=== PATIENT | male | born 1935 | race Caucasian/White ===

== ENCOUNTER → 2017-07-27 | Outpatient (CLI) | payer MEDICARE ==
[2015-08-11 10:16] VITALS: BMI 26.9
[~2017-07-27] MED LIST: AMLO-96 PO; AMLO-99 PO; AZIT-17 PO; BUS5 PO; CITA-141 PO; CITA-156 PO; CYCL-277 PO; DULO30CA35 PO; DULO30CA6 PO; DULO60CA56 PO; DULO60CA7 PO; FENT-21 TD; FENT-60 TD; FLU IM; FLU180SY9 IM; FLU45SYR17 IM; HYDR-385 PO; HYDR12.558 PO; LIS20 PO; LISI-353 PO; LISI20TA29 PO; LOR5/325 PO; MELO7.5O4 PO; METO-253 PO; METO100T20 PO; METO50TA19 PO; MIRT-22 PO; MIRT7.5T2 PO; PNEU0.5D3 IM; POLY17PO25 PO; POTA-23 PO; QUET25TA PO; SPIR25TA78 PO; VAR05PT PO; VARE1TAB3 PO; ZOL5 PO
[2017-07-27 11:46] LABS: PLATELET COUNT, AUTOMATED 224 K/uL (150-450)
== END ==
LOC: LAB 11:14
PROVIDERS: ATTEND Internal Medicine
DX: I10 Essential (primary) hypertension (principal); E87.1 Hypo-osmolality and hyponatremia
CPT/HCPCS: 36415; 82040; 82247; 82310; 82374; 82435; 82565; 82947; 84075; 84132; 84155; 84295; 84443; 84450; 84460; 84520; 85025

== ENCOUNTER 2017-08-05 13:00 | Outpatient (RCR) | payer MEDICARE ==
[2015-08-11 10:16] VITALS: BMI 26.9
--- NOTE | 2017-08-04 13:23 | PT INITIAL EVALUATION ---
MEDICAL DIAGNOSIS: low back pain TREATMENT DIAGNOSIS: same DATE OF ONSET: 06/20/07 SUBJECTIVE: Josesito Beltran presents to physical therapy with complaints of low back pain associated with radiating pain around his umbilical and down his L LE on the anterior and posterior side of his L LE to his knee and occasionally into L foot. He reports that he has had this pain for over 10 years. He reports that he had a clean up surgical intervention around L2-3 approximately 10 years ago, however, he reports that it did not change his symptoms. He reports increased pain with standing, bending, laying (on his back and R side) , and lifting. He reports symptoms better with sitting, walking, and lying (as long as he is on his L side. Furthermore, he reports that he had an aneurism approximately 2 years ago along with the removal of some veins in his L LE along with increased falls around this same time. Due to this, he reports that he has decreased strength in his UE's and in his LE's. He denies any of the following symptoms: abnormal gait and bladder control, imaging, recent accidents, night pain, unexplained weight loss, or recent surgical interventions. He reports that the pain does not change with improved posture. Pain location is L1-L5 and described as . Pain scale is 2 on a ten point pain scale. REHAB PROBLEM LIST: Increased Pain Decreased ROM Decreased Strength Decreased Endurance Decreased Balance Decreased Function Decreased ADL's Decreased Mobility Decreased Gait PREVIOUS MEDICAL HISTORY: See EMR OCCUPATION: Retired OBJECTIVE: Posture: He demonstrated increased forward head, thoracic kyphosis, and decreased lumbar lordosis. ROM: Trunk AROM: flexion: moderate restriction with painful end feel. extension : moderate restriction with painful end feel. Sidegliding R: minimal restriction with muscular end feel. Sidegliding L: minimal restriction with muscular end feel. Strength: Core, B LE's: 4-/5, which includes: B hip flexion, extension, abduction, adduction, B knee flexion and extension, and B ankle PF and DF. B UE 's: 4/5, which includes: B shoulder flexion, scaption, abduction, IR/ER, B elbow flexion and extension, and B wrist extension and flexion. Palpation: TTP: L1-5 spinous processes. He was not tender to palpation anywhere else. Sensation: Intact Special Tests: Oswestry: 38% impairment. prone in lying/prone on elbows/standing extension: pain felt during the test and better following the test with increased trunk AROM in all directions with decreased pain at end ranges. Mobility: Modified Independent Gait: He demonstrated the following gait mechanics with cane: decreased B step length, decreased B step clearance, decreased velocity, decreased B pelvic rotation, no LOB, increased stance time during the gait cycles, and decreased swing time during the gait cycles. Balance: Will test in the future: appears to be a major deficit. ASSESSMENT: Jamey will benefit from skilled physical therapy addressing the listed impairments to improve function and QOL. Based on today's examination, it appears that his provisional classification is a posterior derangement that responded well to extension based principles. Short Term Goals 3 weeks: Pt will demonstrate centralized low back pain to improve function and QOL. 6 weeks: Pt will demonstrate abolished low back pain to improve function and QOL. 8 weeks: Pt will demonstrate improvements in core and B LE's from baseline to 4 +/5 or greater to improve function and QOL. Patient's Goals reduce low back pain and improve strength in UE's, LE's, and core PLAN: Patient to be seen for Manual Therapy/STM/MET Strengthening/condition Range of Motion Spinal Stabilization Work Hardening/Cond Stretching Neuromuscular Re-ed Closed Chain Program Posture/Body mechanics Gait Trg/Balance Trg Home Exercise Program Therapeutic Activities 2x/Week for 2 Months If you have any questions, comments, or concerns about this report or plan, please contact me at . Thank you, Richard Sullivan, PT, DPT MTDD
[2017-08-24] MEDS ORDERED: SPIR50TA31 PO ×2 (11:31→11:34)
[2017-08-24] MEDS ORDERED: LISI20TA29 PO (11:34)
[2017-08-24] MEDS ORDERED: METO100T20 PO (11:34)
[2017-08-24] MEDS ORDERED: AMLO-99 PO (11:34)
[2017-08-24] MEDS ORDERED: BUS5 PO (11:34)
[2017-08-24] MEDS ORDERED: DULO60CA56 PO (11:34)
== END 2017-08-05 18:00 | disposition home or self-care (01) ==
LOC: PT 13:00
PROVIDERS: ATTEND Internal Medicine
DX: M54.16 Radiculopathy, lumbar region (principal)
CPT/HCPCS: 97162

== ENCOUNTER → 2017-09-09 | Outpatient (CLI) | payer MEDICARE ==
[2015-08-11 10:16] VITALS: BMI 26.9
[~2017-09-09] MED LIST changes: +SPIR50TA31 PO
--- NOTE | 2017-09-09 19:02 | RADIOLOGY IMAGING REPORT ---
FACILITY: [facility] [place] PATIENT NAME: Josesito Beltran : 1935 MR: [id number] V: [id number] EXAM DATE: ORDERING PHYSICIAN: DENISSE OLSEN TECHNOLOGIST: Location: [facility] [place] Patient: Josesito Beltran : 1935 Visit/Account:[id number] Date of Sevice: 09/09/2017 Examination: WRIST LEFT MIN 3 VIEW Comparison: None. History: Left wrist pain. Findings: No acute fracture. Widened scapholunate interval with mild proximal migration of the capita te. Additionally, there is increased dorsal tilt of the lunate. Moderately advanced iterative change along the radioscaphoid joint. No soft tissue abnormality. IMPRESSION: 1. No left wrist acute fracture or malalignment. 2. 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 Report Dictated By: Keon De Santiago MD at 09/09/2017 6:52 PM Report E-Signed By: Keon De Santiago MD at 09/09/2017 6:57 PM WSN:[id number]
== END ==
LOC: RAD 14:46
PROVIDERS: ATTEND Internal Medicine
DX: R93.7 Abnormal findings on diagnostic imaging of other parts of musculoskeletal system (principal)

== ENCOUNTER → 2018-01-20 | Outpatient (CLI) | payer MEDICARE ==
[2015-08-11 10:16] VITALS: BMI 26.9
[~2018-01-20] MED LIST changes: +BUSP7.5T7 PO; +LUTE1CAP4 PO; -SPIR25TA78 PO; +SPIR25TA80 PO; -SPIR50TA31 PO; +SPIR50TA33 PO
[2018-01-20 11:55] LABS: PLATELET COUNT, AUTOMATED 196 K/uL (150-450)
[2018-01-20 12:08] LABS: LDL CHOLESTEROL 61 mg/dl
--- NOTE | 2018-01-20 12:30 | RADIOLOGY IMAGING REPORT ---
FAC[place]: [facility] [place] PATIENT NAME: Josesito Beltran : 1935 MR: [id number] V: [id number] EXAM DATE: ORDERING PHYSICIAN: DENISSE OLSEN TECHNOLOGIST: Location: [facility] [place] Patient: Josesito Beltran : 1935 Visit/Account:[id number] Date of Sevice: 01/20/2018 Technique: CHEST PA AND LAT HISTORY: smoking and weight loss Comparison studies: Chest radiographs June 04, 2016 FINDINGS: No acute airspace consolidation. There is pulmonary hyperexpansion in the background setti ng of scattered interstitial lung markings. The cardiomediastinal silhouette is unchanged. IMPRESSION: 1. No acute cardiopulmonary process. 2. Chronic lung findings. Report Dictated By: Carlos Lawson DO at 01/20/2018 12:24 PM Report E-Signed By: Carlos Lawson DO at 01/20/2018 12:26 PM WSN:[email or web address]
== END ==
LOC: LAB 11:21 → RAD 11:23
PROVIDERS: ATTEND Internal Medicine
DX: R91.8 Other nonspecific abnormal finding of lung field (principal); M54.5 Low back pain; G89.4 Chronic pain syndrome; E87.1 Hypo-osmolality and hyponatremia; I10 Essential (primary) hypertension; I71.4 Abdominal aortic aneurysm, without rupture; F33.2 Major depressive disorder, recurrent severe without psychotic features; R63.4 Abnormal weight loss; Z87.891 Personal history of nicotine dependence
CPT/HCPCS: 36415; 71046; 81001; 84443; 85025; G0103; 82040; 82247; 82310; 82374; 82435; 82465; 82565; 82947; 83718; 84075; 84132; 84153; 84155; 84295; 84450; 84460; 84478; 84520

== ENCOUNTER → 2018-07-17 | Outpatient (CLI) | payer MEDICARE ==
[2015-08-11 10:16] VITALS: BMI 26.9
[~2018-07-17] MED LIST changes: +AMLO-125 PO; +AMLO-127 PO; -AMLO-96 PO; -AMLO-99 PO; +GABA-547 PO
[2018-07-17 13:28] LABS: PLATELET COUNT, AUTOMATED 211 K/uL (150-450)
== END ==
LOC: LAB 13:09
PROVIDERS: ATTEND Internal Medicine
DX: I71.4 Abdominal aortic aneurysm, without rupture (principal); I10 Essential (primary) hypertension; R63.4 Abnormal weight loss
CPT/HCPCS: 36415; 81001; 82040; 82247; 82310; 82374; 82435; 82565; 82947; 84075; 84132; 84155; 84295; 84443; 84450; 84460; 84520; 85025

== ENCOUNTER → 2018-08-03 | Outpatient (CLI) | payer MEDICARE ==
[2015-08-11 10:16] VITALS: BMI 26.9
--- NOTE | 2018-08-03 14:06 | RADIOLOGY IMAGING REPORT ---
FACILITY: [facility] PATIENT NAME: Josesito Beltran : 1935 MR: [id number] V: [id number] EXAM DATE: ORDERING PHYSICIAN: DENISSE OLSEN TECHNOLOGIST: Location: [facility] [place] Patient: Josesito Beltran : 1935 Visit/Account:[id number] Date of Sevice: 08/03/2018 Examination: Computed tomography chest abdomen and pelvis without contrast HISTORY: Abdominal aortic aneurysm. Weight loss. COMPARISON: None available. TECHNIQUE: Transaxial computed tomography images are obtained of the chest abdomen and pelvis without contrast. Multiplanar reformatted images were created in the coronal and sagittal planes. One of the following dose optimization techniques was utilized in the performance of this exam: Autom ated exposure control; adjustment of the mA and/or kV according to the patient's size; or use of an i terative reconstruction technique. Specific details can be referenced in the facility's radiology C T exam operational policy. FINDINGS: Computed tomography thorax findings: There is no axillary adenopathy. No enlarged hilar or mediastinal nodes are identified. The thoracic aorta is diffusely atherosclerotic. The descending thoracic aorta appears mildly ectati c and measures up to 3.5 cm in greatest transaxial dimension. Coronary artery atherosclerosis is als o seen most pronounced involving the left anterior descending coronary artery. No pericardial effusion. No pleural effusion. Examination of the lung windows demonstrates biapical pleural parenchymal scarring asymmetric groundg lass opacity is identified within the left upper lobe. This measures up to 3.2 x 3.5 cm in the trans axial plane and measures up to 3.5 cm craniocaudally. Given the asymmetry, concern is for the possib ility of a low-grade neoplasm. There may be a trace small round solid component which measures 6 mm in size. See recommendations below. There are background changes of centrilobular emphysema. Suspe cted area of scarring seen along the minor fissure on image 64. Computed tomography abdomen and pelvis findings: Liver: No acute abnormality. Scattered calcifications suggesting old granulomatous disease. Biliary: Gallbladder has been previously removed. No biliary dilatation. Spleen: Unremarkable. Adrenal glands: Nodular thickening of the adrenal glands bilaterally which maintain their adreniform shape. Suspected left adrenal gland adenoma within the medial limb measures 1.8 x 1.1 cm in size. Pancreas: Unremarkable. Kidneys: No hydronephrosis. There are calcifications seen centrally within the right renal hilum. S ome of these are likely vascular. There is felt to be at least one nonobstructing stone in the midpo le which measures 4 mm. On the left, a peripheral hyperdense lesion is present. This may represent a hemorrhagic cyst. This measures 3 mm in size. GI: No colonic wall thickening or pericolic inflammation. Small bowel loops are normal in caliber. No free fluid. Vascular: There has been prior endoluminal stent graft repair of an abdominal aortic aneurysm. The n ative aorta is densely calcified. Calcifications extend into the iliac and femoral vessels. Severe common femoral artery atherosclerotic calcifications are seen. There may be severe stenosis bilatera lly. This is incompletely assessed. No retroperitoneal hematoma. Lymph nodes: No enlarged inguinal or retroperitoneal nodes are seen on this noncontrast exam. MUSCULOSKELETAL: Multilevel degenerative disc disease involves the lumbar spine. This is most severe at L3-L4 with endplate changes. No compression deformity. IMPRESSION: 1. Abnormal groundglass opacity with a questionable small solid component within the left upper lung . This is asymmetric to the right side and is superimposed upon underlying centrilobular emphysema. While this could be inflammatory/infectious, concern is for the possibility of a low-grade carcinoma . Follow-up CT scan in 3 months. See recommendations below. 2. Centril bular emphysema. 3. Extensive atherosclerosis. There has been prior endoluminal stent graft repair of the abdominal aorta. Extensive atherosclerotic calcifications involve the common femoral vessels.4. Nonobstructin g right renal stone/stones. 5. Peripheral hyperdense lesion within the midpole of the left kidney. This measures 3 mm in size a nd is indeterminate. FLE[employer] FOLLOW-UP GUIDELINES FOR NEWLY DETECTED INCIDENTAL NODULES IN PERSONS 35 YEARS OF AGE OR OLDER. *These recommendations do NOT apply to lung cancer screening, patients with immunosuppression or ariana ents with a known primary malignancy. SOLITARY SUBSOLID NODULE GROUND GLASS: If nodule size is < 6 mm: * No routine follow-up. If nodule size is > or equal to 6 mm: * CT at 6-12 months to confirm persistence, then CT every 2 years until 5 years if unchanged. PART SOLID: If nodule size is < 6 mm: * No routine follow-up. If nodule size is > or equal to 6 mm with solid component < 6 mm: * CT at 3-6 months to confirm persistence. If unchanged and solid component remains < 6 mm, annual CT for 5 years. If nodule size is > or equal to 6 mm with solid component > or equal to 6 mm: * CT at 3-6 months to confirm persistence. If unchanged, should be considered highly suspicious. LOW RISK PATIENT: Minimal or absent history of tobacco use and of other known risk factors. HIGH RISK PATIENT: Tobacco use, family history of lung cancer, upper pulmonary lobe location of nodul e, presence of emphysema, pulmonary fibrosis, older age. Elizabethhogio H, Tristian DP, Davido JM, et al. Guidelines for Management of Incidental Pulmonary Nodules Dete cted on CT Images: From the Fleischner Society 2017. Radiology. [facility] Report Dictated By: Arnulfo Sykes at 08/03/2018 1:17 PM Report E-Signed By: Arnulfo Sykes at 08/03/2018 2:02 PM WSN:[email or web address]
== END ==
LOC: CT 00:47
PROVIDERS: ATTEND Internal Medicine
DX: J43.2 Centrilobular emphysema (principal); I25.10 Atherosclerotic heart disease of native coronary artery without angina pectoris; N20.0 Calculus of kidney; N28.9 Disorder of kidney and ureter, unspecified
CPT/HCPCS: 71250; 74176

== ENCOUNTER → 2018-10-02 | Outpatient (CLI) | payer MEDICARE ==
[2015-08-11 10:16] VITALS: BMI 26.9
[~2018-10-02] MED LIST changes: +IOPAMIDOL 76% 150 ML INFUS BTL 150 ML ONE
--- NOTE | 2018-10-02 10:43 | RADIOLOGY IMAGING REPORT ---
FACILITY: [facility] [place] PATIENT NAME: Josesito Beltran : 1935 MR: [id number] V: [id number] EXAM DATE: ORDERING PHYSICIAN: DENISSE OLSEN TECHNOLOGIST: Location: [facility] [place] Patient: Josesito Beltran : 1935 Visit/Account:[id number] Date of Sevice: 10/02/2018 EXAMINATION: CT chest without IV contrast CT chest with IV contrast HISTORY: Abnormal CT of the chest. Follow-up abnormal groundglass opacity. COMPARISON: Chest radiograph from 01/20/[address] chest from 08/03/2018. TECHNIQUE: Axial images were taken through the chest without and with nonionic iodinated intravenous contrast. Sagittal and coronal reformatted images are also submitted. CONTRAST: 75 mL of IV [id number]. One of the following dose optimization techniques was utilized in the performance of this exam: Autom ated exposure control; adjustment of the mA and/or kV according to the patient's size; or use of an i terative reconstruction technique. Specific details can be referenced in the facility's radiology C T exam operational policy. FINDINGS: Lungs/pleura: There is mild centrilobular emphysema, worst in the upper lungs. There is a groundgla ss opacity in the left upper lobe measuring up to 3.5 cm (image 16 series 3) with an eccentric 6 mm s olid nodule (image 19 series 3). This is similar to prior exam. Mediastinum/tramaine: Negative. Heart/pericardium: Negative. Vessels: Extensive atherosclerotic calcifications including of the coronary arteries. Endograft in the upper abdominal aorta partly visualized. Musculoskeletal/body wall: Mild degenerative changes of the thoracic spine. Lymph nodes: Negative. Lower neck: Negative. Upper abdomen: Previous cholecystectomy. IMPRESSION: 1. 3.5 cm groundglass opacity in the left upper lobe with a 6 mm eccentric solid nodule is unchanged since 07/2018. Repeat noncontrast chest CT is recommended in 3-6 months. 2. Centrilobular emphysema. 3. Extensive atherosclerosis. FLE[employer] FOLLOW-UP GUIDELINES FOR NEWLY DETECTED INCIDENTAL NODULES IN PERSONS 35 YEARS OF AGE OR OLDER. *These recommendations do NOT apply to lung cancer screening, patients with immunosuppression or ariana ents with a known primary malignancy. SOLITARY SUBSOLID NODULE PART SOLID: If nodule size is > or equal to 6 mm with solid component > or equal to 6 mm: * CT at 3-6 months to confirm persistence. If unchanged, should be considered highly suspicious. LOW RISK PATIENT: Minimal or absent history of tobacco use and of other known risk factors. HIGH RISK PATIENT: Tobacco use, family history of lung cancer, upper pulmonary lobe location of nodul e, presence of emphysema, pulmonary fibrosis, older age. Yumiko H, Tristian DP, Jorge SIMMONS, et al. Guidelines for Management of Incidental Pulmonary Nodules Dete cted on CT Images: From the Fleischner Society 2017. Radiology. [facility] Report Dictated By: Becca Chinchilla MD at 10/02/2018 9:54 AM Report E-Signed By: Becca Chinchilla MD at 10/02/2018 10:39 AM WSN:[email or web address]
== END ==
LOC: CT 00:52
PROVIDERS: ATTEND Internal Medicine
DX: R91.1 Solitary pulmonary nodule (principal); J43.2 Centrilobular emphysema; I25.10 Atherosclerotic heart disease of native coronary artery without angina pectoris
CPT/HCPCS: 36415; 71270; Q9967; 82040; 82247; 82310; 82374; 82435; 82565; 82947; 84075; 84132; 84155; 84295; 84450; 84460; 84520

== ENCOUNTER 2018-11-14 13:18 | Emergency (ER) | payer MEDICARE ==
[2015-08-11 10:16] VITALS: Wt 82.1 kg
--- NOTE | 2018-11-14 13:21 | ER Report ---
History and Physical Time Seen By MD: 13:21 (SARAH KUMAR MD) Time Seen By MD: 18:26 (KARI QUEZADA DO) HPI/ROS CHIEF COMPLAINT: fall, urinary retention, hip and back and lower abdomen pain, c ant pee. HISTORY OF PRESENT ILLNESS: This is an 83 year old male. He fell on Tuesday. Patient says it was Tuesday, but family with him says it was Tuesday. He lost balance and fell with his left side against the bedside table. Having back and bilateral hip pain since that time. Also with abdominal pain. Says he urinated yesterday, but not much and has not been able to urinate today. Has lower abdomi nal distension. Has been very constipated, last bowel movement was last night and was constipated. No fevers. No shortness of breath. No chest pain. Normal sensation in legs, just hurts in hips and pelvis are to walk and move. (SARAH KUMAR MD) HPI/ROS Please see Dr. Kumar note (KARI QUEZADA DO) Allergies: Coded Allergies: No Known Drug Allergies (Verified , 08/05/15) Home Meds Active Scripts Hydrocodone Bit/Acetaminophen (HYDROCODON-ACETAMINOPHEN 5-325) 1 Each Tablet, 1 EACH PO Q8H PRN for pain, #90 TAB Refill on or after 12/23/2018 Prov:DENISSE OLSEN MD 10/19/18 Fentanyl 75 Mcg Patch (FENTANYL 75 MCG PATCH) 1 Each Patch.td72, 1 PATCH TD Q72H, #10 PATCH.72H refill on or after 12/23/2018 Prov:DENISSE OLSEN MD 10/19/18 Gabapentin (GABAPENTIN) 300 Mg Capsule, 300 MG PO BID, #180 CAPSULE 1 Refill Prov:DENISSE OLSEN MD 10/19/18 Spironolactone (SPIRONOLACTONE) 50 Mg Tablet, 50 MG PO BID, #60 TAB 11 Refills Prov:DENISSE OLSEN MD 04/25/18 Buspirone Hcl (BUSPIRONE HCL) 7.5 Mg Tablet, 7.5 MG PO BID, #60 TAB 9 Refills Prov:DENISSE OLSEN MD 01/20/18 Amlodipine Besylate (AMLODIPINE BESYLATE) 10 Mg Tablet, 1 TAB PO QDAY, #30 TAB 11 Refills Prov:DENISSE OLSEN MD 08/24/17 Lisinopril (LISINOPRIL) 20 Mg Tablet, 20 MG PO BID, #60 TAB 11 Refills Prov:DENISSE OLSEN MD 08/24/17 Metoprolol Succinate (METOPROLOL SUCCINATE) 100 Mg Tab.er.24h, 1 TAB PO QDAY, #11 TAB 11 Refills Prov:DENISSE OLSEN MD 08/24/17 Duloxetine Hcl (CYMBALTA) 60 Mg Capsule.dr, 60 MG PO QDAY, #30 CAP 11 Refills Prov:DENISSE OLSEN MD 08/24/17 Reported Medications Lutein Extract/Zeaxanthin Ext (LUTEIN 15 MG SOFTGEL) 1 Each Capsule, 1 EACH PO DAILY, CAPSULE 01/20/18 Polyethylene Glycol 3350 (MIRALAX) 17 Gm Powd.pack, 17 GM PO QDAY PRN for CONSTIPATION 03/12/15 Past Medical/Surgical History Hypertension, aortic aneurysm, history of prostate problems, arthritis, macular degeneration, depression, skin cancer removed on face, other surgeries include cholecystectomy, hernia, prostate, various orthopedic surgeries including shoulder and back (SARAH KUMAR MD) Reviewed Nurses Notes: Yes (SARAH KUMAR MD) Hx Smoking: Yes Smoking Status: Current: Every Day Smoker Hx Substance Use Disorder: No Hx Alcohol Use: No (SARAH KUMAR MD) Constitutional Vital Sign - Last 24 Hours 11/14/18 13:25 Temp 97.9 Pulse 105 Resp 18 B/P (MAP) 106/95 Pulse Ox 91 O2 Delivery Room Air (KARI QUEZADA DO) Physical Exam General Appearance: The patient is alert. No acute distress. Eyes: Pupils are equal, round. No pallor, injection or icterus. ENT: Mucous membranes are moist. Normal oral mucosa. Neck: Supple and non tender. Respiratory: Lungs are clear to auscultation. Cardiovascular: Regular rate and rhythm. No murmurs, gallops or rubs. Normal capillary refill. Trace edema bilateral lower extremities. Gastrointestinal: Abdomen is soft, tender in lower abdomen, distended and tight. Normal active bowel sounds. No costovertebral angle tenderness with percussion. Neurological: Alert and oriented x3. No focal neurologic deficits Skin: Warm and dry. No rashes. Musculoskeletal: Extremities are nontender. No tenderness in palpation of the cervical, thoracic and lumbar spine. DIFFERENTIAL DIAGNOSIS: After history and physical exam, differential diagnosis was considered for fall a few days ago with hip and back pain, now with lower abdomen pain and what appears to be urinary retention. Also with constipation recently. (SARAH KUMAR MD) Physical Exam Please see Dr. Kumar note (KARI QUEZADA DO) Medical Decision Making Data Points Result Diagram: 11/14/18 1352 11/14/18 1352 Laboratory Hematology Test 11/14/18 13:52 Red Blood Count 5.38 M/uL (4.00-5.60) Mean Corpuscular Volume 91.7 fL (80.0-96.0) Mean Corpuscular Hemoglobin 30.8 pg (26.0-33.0) Mean Corpuscular Hemoglobin Concent 33.6 g/dL (32.0-36.0) Red Cell Distribution Width 14.0 % (11.5-14.5) Mean Platelet Volume 8.5 fL (7.2-11.1) Neutrophils (%) (Auto) 73.1 % (39.4-72.5) Lymphocytes (%) (Auto) 18.7 % (17.6-49.6) Monocytes (%) (Auto) 7.0 % (4.1-12.4) Eosinophils (%) (Auto) 0.6 % (0.4-6.7) Basophils (%) (Auto) 0.6 % (0.3-1.4) Nucleated RBC Relative Count (auto) 0.1 /100WBC Neutrophils # (Auto) 8.5 K/uL (2.0-7.4) Lymphocytes # (Auto) 2.2 K/uL (1.3-3.6) Monocytes # (Auto) 0.8 K/uL (0.3-1.0) Eosinophils # (Auto) 0.1 K/uL (0.0-0.5) Basophils # (Auto) 0.1 K/uL (0.0-0.1) Nucleated RBC Absolute Count (auto) 0.01 K/uL Urine Color Yellow Urine Clarity Clear Urine pH 5.0 pH (4.8-9.5) Urine Specific [place] 1.015 Urine Protein Negative mg/dL (NEGATIVE) Urine Glucose (UA) Negative mg/dL (NEGATIVE) Urine Ketones Negative mg/dL (NEGATIVE) Urine Blood Negative (NEGATIVE) Urine Nitrite Negative (NEGATIVE) Urine Bilirubin Negative (NEGATIVE) Urine Urobilinogen Negative mg/dL (0.2-1.9) Urine Leukocyte Esterase Negative (NEGATIVE) Urine RBC <1 /HPF (0-2/HPF) Urine WBC 4 /HPF (0-5/HPF) Urine Squamous Epithelial Cells Many /LPF (NONE-FEW) Urine Bacteria Negative /HPF (NONE-FEW) Urine Hyaline Casts Few /LPF (NONE-FEW) Urine Mucus None /HPF (NONE-FEW) Sodium Level 132 mmol/L (137-145) Potassium Level 4.0 mmol/L (3.5-5.0) Chloride Level 98 mmol/L (98-107) Carbon Dioxide Level 24 mmol/L (22-30) Blood Urea Nitrogen 17 mg/dl (9-21) Creatinine 0.90 mg/dl (0.66-1.25) Glomerular Filtration Rate Calc > 60.0 Random Glucose 125 mg/dl (75-110) Calcium Level 8.9 mg/dl (8.4-10.2) Total Bilirubin 0.5 mg/dl (0.2-1.3) Aspartate Amino Transf (AST/SGOT) 23 U/L (0-35) Alanine Aminotransferase (ALT/SGPT) 21 U/L (0-56) Alkaline Phosphatase 66 U/L (0-126) Total Protein 6.5 g/dl (6.3-8.2) Albumin 3.9 g/dl (3.5-5.0) Chemistry Test 11/14/18 13:52 White Blood Count 11.6 k/uL (4.5-11.0) Red Blood Count 5.38 M/uL (4.00-5.60) Hemoglobin 16.6 g/dL (14.0-18.0) Hematocrit 49.3 % (42.0-52.0) Mean Corpuscular Volume 91.7 fL (80.0-96.0) Mean Corpuscular Hemoglobin 30.8 pg (26.0-33.0) Mean Corpuscular Hemoglobin Concent 33.6 g/dL (32.0-36.0) Red Cell Distribution Width 14.0 % (11.5-14.5) Platelet Count 193 K/uL (150-450) Mean Platelet Volume 8.5 fL (7.2-11.1) Neutrophils (%) (Auto) 73.1 % (39.4-72.5) Lymphocytes (%) (Auto) 18.7 % (17.6-49.6) Monocytes (%) (Auto) 7.0 % (4.1-12.4) Eosinophils (%) (Auto) 0.6 % (0.4-6.7) Basophils (%) (Auto) 0.6 % (0.3-1.4) Nucleated RBC Relative Count (auto) 0.1 /100WBC Neutrophils # (Auto) 8.5 K/uL (2.0-7.4) Lymphocytes # (Auto) 2.2 K/uL (1.3-3.6) Monocytes # (Auto) 0.8 K/uL (0.3-1.0) Eosinophils # (Auto) 0.1 K/uL (0.0-0.5) Basophils # (Auto) 0.1 K/uL (0.0-0.1) Nucleated RBC Absolute Count (auto) 0.01 K/uL Urine Color Yellow Urine Clarity Clear Urine pH 5.0 pH (4.8-9.5) Urine Specific [place] 1.015 Urine Protein Negative mg/dL (NEGATIVE) Urine Glucose (UA) Negative mg/dL (NEGATIVE) Urine Ketones Negative mg/dL (NEGATIVE) Urine Blood Negative (NEGATIVE) Urine Nitrite Negative (NEGATIVE) Urine Bilirubin Negative (NEGATIVE) Urine Urobilinogen Negative mg/dL (0.2-1.9) Urine Leukocyte Esterase Negative (NEGATIVE) Urine RBC <1 /HPF (0-2/HPF) Urine WBC 4 /HPF (0-5/HPF) Urine Squamous Epithelial Cells Many /LPF (NONE-FEW) Urine Bacteria Negative /HPF (NONE-FEW) Urine Hyaline Casts Few /LPF (NONE-FEW) Urine Mucus None /HPF (NONE-FEW) Glomerular Filtration Rate Calc > 60.0 Calcium Level 8.9 mg/dl (8.4-10.2) Total Bilirubin 0.5 mg/dl (0.2-1.3) Aspartate Amino Transf (AST/SGOT) 23 U/L (0-35) Alanine Aminotransferase (ALT/SGPT) 21 U/L (0-56) Alkaline Phosphatase 66 U/L (0-126) Total Protein 6.5 g/dl (6.3-8.2) Albumin 3.9 g/dl (3.5-5.0) Urinalysis Test 11/14/18 13:52 Urine Color Yellow Urine Clarity Clear Urine pH 5.0 pH (4.8-9.5) Urine Specific Vista 1.015 Urine Protein Negative mg/dL (NEGATIVE) Urine Glucose (UA) Negative mg/dL (NEGATIVE) Urine Ketones Negative mg/dL (NEGATIVE) Urine Blood Negative (NEGATIVE) Urine Nitrite Negative (NEGATIVE) Urine Bilirubin Negative (NEGATIVE) Urine Urobilinogen Negative mg/dL (0.2-1.9) Urine Leukocyte Esterase Negative (NEGATIVE) Urine RBC <1 /HPF (0-2/HPF) Urine WBC 4 /HPF (0-5/HPF) Urine Squamous Epithelial Cells Many /LPF (NONE-FEW) Urine Bacteria Negative /HPF (NONE-FEW) Urine Hyaline Casts Few /LPF (NONE-FEW) Urine Mucus None /HPF (NONE-FEW) (QUEZADA,KARI S DO) EKG/Imaging Imaging CT ABDOMEN PELVIS W/ CON HISTORY: fall, hip/back pain, suprapubic pain TECHNIQUE: Following administration of IV contrast contiguous axial images acquired through the abdomen/pelvis. Coronal and sagittal reformatting also performed.Dose Lowering Technique One of the following dose optimization techniques was utilized in the performance of this exam: Automated exposure control; adjustment of the mA and/or kV according to the patient's size; or use of an iterative reconstruction technique. Specific details can be referenced in the facility's radiology CT exam operational policy. CONTRAST: 75 mL Isovue-370 COMPARISON: CT chest abdomen and pelvis August 03, 2018 FINDINGS: Visualized lung bases: There is increasing coarse linear stranding in the dependent portion lower lobes which may represent atelectasis. Hepatobiliary: There postsurgical changes from a cholecystectomy with intra and extrahepatic biliary ductal dilatation which has increased when compared to the prior study. The common bile duct measures 1.1 cm in diameter. Spleen: Calcified granulomas Adrenals: There is nodular thickening of the adrenal glands bilaterally 1.8 x 1.1 cm left adrenal nodule appears relatively unchanged Pancreas: Negative. Kidneys ureters or bladder: There is lower pole scarring of the left kidney. Nonobstructing calcified occasions identified in the right kidney. The urinary bladder is decompressed with a Mathis catheter Genitalia: Prostate gland not identified GI: There is a large stool ball in the rectum Vessels/spaces/nodes: Endoluminal stent grafting of an abdominal aortic aneurysm with bilateral common iliac stent grafts as well is again noted. The [place] abdominal aorta is densely calcified as are the branch vessels particularly the iliac common femoral and visualized superficial femoral arteries Bones/soft tissues: There postsurgical changes of the lumbar spine and severe multilevel spondylotic changes most prominent at L3-4. There is a mild compression fracture of L1 that was not present previously Additional findings: None pertinent. IMPRESSION: There is mild compression fracture of L1 that appears new Increasing linear stranding in the lung bases likely represents atelectasis Postsurgical changes from a cholecystectomy with intra and extrahepatic periductal dilatation. This has increased when compared to the prior study. An obstructing calculus is not seen however if biliary obstruction is of clinical concern MRCP recommended Large stool ball in the rectum Additional chronic findings as detailed above Report Dictated By: Ronna Polo MD at 11/14/2018 4:22 PM EXAMINATION: Lumbar spine CT 11/14/2018 2:28 PM HISTORY: fall, hip/back pain, suprapubic pain TECHNIQUE: Axial images were obtained from the thoraco-lumbar junction through the upper sacrum without IV contrast administration. Coronal and sagittal reformatted images were obtained from the axial source data. One of the following dose optimization techniques was utilized in the performance of this exam: Automated exposure control; adjustment of the mA and/or kV according to the patient's size; or use of an iterative reconstruction technique. Specific details can be referenced in the facility's radiology CT exam operational policy. COMPARISON STUDIES: CT abdomen and pelvis is reported separately. FINDINGS: Paravertebral soft tissues: There is some stranding in fat around L1 although no substantial paraspinous hematoma. Alignment: Levoscoliotic lower lumbar curvature with the apex at L3-4. Retrolisthesis at L3-4 and minimally L4-5. Vertebral bodies: Mild compression fracture at L1 with some gas in the vertebral body consistent with acuity, new comparing with chest CT 10/02/2018. Pedicles and posterior almost are uninvolved. No substantial bony retropulsion. No acute finding at other levels. Significant degenerative sclerosis adjacent to the endplates at both sides of L3-4. Posterior elements: Previous L3 and L4 laminectomies. Facet degenerative changes most notably towards the left at L5-S1. Disc Spaces: Degenerative changes throughout the lumbar spine with disc loss and vacuum disc at several levels most notably at L3-4. Visualized retroperitoneal / abdominal structures: See separate CT abdomen and pelvis report. IMPRESSION: 1. Acute mild L1 compression fracture without substantial bony retropulsion or posterior element involvement. 2. No other acute finding. Scoliosis and degenerative changes as discussed above. Report Dictated By: Franko Garrido MD at 11/14/2018 4:53 PM (SARAH KUMAR MD) Imaging PATIENT NAME: Josesito Beltran : 1935 MR: [id number] V: [id number] EXAM DATE: ORDERING PHYSICIAN: SARAH KUMAR [place]CHNOLOG[place] [facility] [place]oses[place] : 1935 Visit/Account:[id number] Date of Sevice: 11/14/2018 CT ABDOMEN PELVIS W/ CON HISTORY: fall, hip/back pain, suprapubic pain TECHNIQUE: Following administration of IV contrast contiguous axial images acquired through the abdomen/pelvis. Coronal and sagittal reformatting also performed.Dose Lowering Technique One of the following dose optimization techniques was utilized in the perform ance of this exam: Automated exposure control; adjustment of the mA and/or kV according to the patient's size; or use of an iterative reconstruction technique. Specific details can be referenced in the facility's radiology CT exam operational policy. CONTRAST: 75 mL Isovue-370 COMPARISON: CT chest abdomen and pelvis August 03, 2018 FINDINGS: Visualized lung bases: There is increasing coarse linear stranding in the dependent portion lower lobes which may represent atelectasis. Hepatobiliary: There postsurgical changes from a cholecystectomy with intra and extrahepatic biliary ductal dilatation which has increased when compared to the prior study. The common bile duct measures 1.1 cm in diameter. Spleen: Calcified granulomas Adrenals: There is nodular thickening of the adrenal glands bilaterally 1.8 x 1.1 cm left adrenal nodule appears relatively unchanged Pancreas: Negative. Kidneys ureters or bladder: There is lower pole scarring of the left kidney. Nonobstructing calcified occasions identified in the right kidney. The urinary bladder is decompressed with a Mathis catheter Genitalia: Prostate gland not identified GI: There is a large stool ball in the rectum Vessels/spaces/nodes: Endoluminal stent grafting of an abdominal aortic aneurysm with bilateral common iliac stent grafts as well is again noted. The [place] abdominal aorta is densely calcified as are the branch vessels particularly the iliac common femoral and visualized superficial femoral arteries Bones/soft tissues: There postsurgical changes of the lumbar spine and severe multilevel spondylotic changes most prominent at L3-4. There is a mild compression fracture of L1 that was not present previously Additional findings: None pertinent. IMPRESSION: There is mild compression fracture of L1 that appears new Increasing linear stranding in the lung bases likely represents atelectasis Postsurgical changes from a cholecystectomy with intra and extrahepatic p eriductal dilatation. This has increased when compared to the prior study. An obstructing calculus is not seen however if biliary obstruction is of clinical concern MRCP recommended Large stool ball in the rectum Additional chronic findings as detailed above (KARI QUEZADA DO) ED Course/Re-evaluation Clinical Indication for ER IV: Hydration, IV Access ED Course Mathis catheter inserted and drained bladder. Much more comfortable. Still with back pain. CT scan shows a L2 compression fracture, looks new, likely from fall recently. Also with large amount of stool in rectum, likely causing the urinary retention. Plan to treat pain for the fracture. Will work on clearing the stool to help with urinary flow then see how he does without the catheter. (SARAH KUMAR MD) ED Course Impression care from Dr. Kumar at shift change at 1800. Patient was identified of a large stool ball, patient was given suppository and milk of magnesia. I attempted to manually disimpact and was able to loosen some of the stool ball however patient was subsequently given an enema and was able to pass a large portion of stool. Patient's catheter was removed. Patient was recommended to return promptly if he was unable to urinate. Recommend stool softeners moving forward. Return percussions provided. Close PCP follow-up recommended. Decision to Disposition Date: November 14, 2018 Decision to Disposition Time: 20:43 (KARI QUEZADA DO) Depart Departure Latest Vital Signs Vital Signs Date Time Temp Pulse Resp B/P (MAP) Pulse Ox O2 Delivery O2 Flow Rate FiO2 11/14/18 13:25 97.9 105 18 106/95 91 Room Air (KARI QUEZADA DO) Impression: Primary Impression: Constipation Additional Impression: Fall Condition: Improved Disposition: HOME OR SELF-CARE Referrals: DENISSE OLSEN MD (PCP) Patient Instructions: Constipation (ED) Additional Instructions: Please drink plenty of water. Please consider adding a stool softener such as Dulcolax or fiber to diet in order to avoid recurrent episodes of constipation. Please return promptly if you develop worsening abdominal pain, fevers, inability to pass stools or urine, blood in the stools or urine, inability to keep down food or fluids. Please follow-up with your family doctor in the next 24-48 hours. Problem Qualifiers SARAH KUMAR MD November 14, 2018 13:21 KARI QUEZADA DO November 14, 2018 18:26
[2018-11-14 14:39] LABS: PLATELET COUNT, AUTOMATED 193 K/uL (150-450)
[2018-11-14] MEDS ORDERED: IOPAMIDOL 76% 100 ML INFUS BTL 0 ML ONE (14:48)
[2018-11-14] MEDS ORDERED: IOPAMIDOL 76% 100 ML INFUS BTL 100 ML ONE (15:37)
--- NOTE | 2018-11-14 17:02 | RADIOLOGY IMAGING REPORT ---
FACILITY: [facility] PATIENT NAME: Josesito Beltran : 1935 MR: [id number] V: [id number] EXAM DATE: ORDERING PHYSICIAN: SARAH HERNANDEZ TECHNOLOGIST: Location: [facility] Patient: Josesito Beltran : 1935 Visit/Account:[id number] Date of Sevice: 11/14/2018 CT ABDOMEN PELVIS W/ CON HISTORY: fall, hip/back pain, suprapubic pain TECHNIQUE: Following administration of IV contrast contiguous axial images acquired through the abdom en/pelvis. Coronal and sagittal reformatting also performed.Dose Lowering Technique One of the following dose optimization techniques was utilized in the performance of this exam: Autom ated exposure control; adjustment of the mA and/or kV according to the patient's size; or use of an i terative reconstruction technique. Specific details can be referenced in the facility's radiology C T exam operational policy. CONTRAST: 75 mL Isovue-370 COMPARISON: CT chest abdomen and pelvis August 03, 2018 FINDINGS: Visualized lung bases: There is increasing coarse linear stranding in the dependent portion lower lo bes which may represent atelectasis. Hepatobiliary: There postsurgical changes from a cholecystectomy with intra and extrahepatic biliary ductal dilatation which has increased when compared to the prior study. The common bile duct measur es 1.1 cm in diameter. Spleen: Calcified granulomas Adrenals: There is nodular thickening of the adrenal glands bilaterally 1.8 x 1.1 cm left adrenal no dule appears relatively unchanged Pancreas: Negative. Kidneys ureters or bladder: There is lower pole scarring of the left kidney. Nonobstructing calcifie d occasions identified in the right kidney. The urinary bladder is decompressed with a Mathis cathete r Genitalia: Prostate gland not identified GI: There is a large stool ball in the rectum Vessels/spaces/nodes: Endoluminal stent grafting of an abdominal aortic aneurysm with bilateral comm on iliac stent grafts as well is again noted. The [place] abdominal aorta is densely calcified as are the branch vessels particularly the iliac common femoral and visualized superficial femoral arteries Bones/soft tissues: There postsurgical changes of the lumbar spine and severe multilevel spondylotic changes most prominent at L3-4. There is a mild compression fracture of L1 that was not present previously Additional findings: None pertinent. IMPRESSION: There is mild compression fracture of L1 that appears new Increasing linear stranding in the lung bases likely represents atelectasis Postsurgical changes from a cholecystectomy with intra and extrahepatic periductal dilatation. This has increased when compared to the prior study. An obstructing calculus is not seen however if bilia ry obstruction is of clinical concern MRCP recommended Large stool ball in the rectum Additional chronic findings as detailed above Report Dictated By: Ronna Polo MD at 11/14/2018 4:22 PM Report E-Signed By: Ronna Polo MD at 11/14/2018 4:35 PM WSN:[id number]
--- NOTE | 2018-11-14 17:06 | RADIOLOGY IMAGING REPORT ---
[place] [facility] [place] NAME: Josesito Beltran : 1935 MR: [id number] V: [id number] EXAM DATE: ORDERING PHYSICIAN: SARAH HERNANDEZ TECHNOLOGIST: [place] [facility] [place] Josesito Beltran : 1935 Visit/Account:[id number] Date of Sevice: 11/14/2018 EXAMINATION: Lumbar spine CT 11/14/2018 2:28 PM HISTORY: fall, hip/back pain, suprapubic pain TECHNIQUE: Axial images were obtained from the thoraco-lumbar junction through the upper sacrum with out IV contrast administration. Coronal and sagittal reformatted images were obtained from the axial source data. One of the following dose optimization techniques was utilized in the performance of this exam: Autom ated exposure control; adjustment of the mA and/or kV according to the patient's size; or use of an i terative reconstruction technique. Specific details can be referenced in the facility's radiology C T exam operational policy. COMPARISON STUDIES: CT abdomen and pelvis is reported separately. FINDINGS: Paravertebral soft tissues: There is some stranding in fat around L1 although no substantial paraspin ous hematoma. Alignment: Levoscoliotic lower lumbar curvature with the apex at L3-4. Retrolisthesis at L3-4 and min imally L4-5. Vertebral bodies: Mild compression fracture at L1 with some gas in the vertebral body consistent with acuity, new comparing with chest CT 10/02/2018. Pedicles and posterior almost are uninvolved. No subs tantial bony retropulsion. No acute finding at other levels. Significant degenerative sclerosis adjac ent to the endplates at both sides of L3-4. Posterior elements: Previous L3 and L4 laminectomies. Facet degenerative changes most notably towards the left at L5-S1. Disc Spaces: Degenerative changes throughout the lumbar spine with disc loss and vacuum disc at sever al levels most notably at L3-4. Visualized retroperitoneal / abdominal structures: See separate CT abdomen and pelvis report. IMPRESSION: 1. Acute mild L1 compression fracture without substantial bony retropulsion or posterior element invo lvement. 2. No other acute finding. Scoliosis and degenerative changes as discussed above. Report Dictated By: Franko Garrido MD at 11/14/2018 4:53 PM Report E-Signed By: Franko Garrido MD at 11/14/2018 5:01 PM WSN:[id number]
[2018-11-14] MEDS ORDERED: MAGNESIUM HYDROXIDE* 30ML UDCP PO ONE (17:45)
[2018-11-14] MEDS ORDERED: BISACODYL 10 MG SUPP PR ONE (17:45)
[2018-11-14 20:42] VITALS: BP 148/96
== END 2018-11-14 20:54 | disposition home or self-care (01) ==
LOC: ER 13:29
DX: K59.00 Constipation, unspecified (principal); S32.020A Wedge compression fracture of second lumbar vertebra, initial encounter for closed fracture
CPT/HCPCS: 36415; 72132; 74177; 81001; 85025; 99284; A9270; Q9967; 82040; 82247; 82310; 82374; 82435; 82565; 82947; 84075; 84132; 84155; 84295; 84450; 84460; 84520

== ENCOUNTER → 2018-11-14 | Outpatient (CLI) | payer MEDICARE ==
[2015-08-11 10:16] VITALS: BMI 26.9
[~2018-11-14] MED LIST changes: +GABA-549 PO; -IOPAMIDOL 76% 150 ML INFUS BTL 150 ML ONE
== END ==
LOC: AMB 12:33
PROVIDERS: ATTEND Nurse Practitioner
DX: R10.30 Lower abdominal pain, unspecified (principal); M25.551 Pain in right hip; M25.552 Pain in left hip
CPT/HCPCS: A0425; A0429

== ENCOUNTER 2018-12-07 14:52 | Observation (INO) | payer MEDICARE ==
[2015-08-11 10:16] VITALS: Wt 82.3 kg
--- NOTE | 2018-12-07 14:56 | ER Report ---
History and Physical Time Seen By MD: 14:52 HPI/ROS CHIEF COMPLAINT: Side and back pain HISTORY OF PRESENT ILLNESS: This is an 83-year-old male who presents to the emergency department via EMS for side and back pain. Patient was seen and evalua cary in the emergency department on 11/14/2018 for a fall. Determined that he had a mild compression fracture and significant stool burden with constipation, he was disimpacted, says only sent home. Patient does take chronic pain medications, he states since he was discharged he's had roughly the same amount of pain however the last several days seems to have intensified, he is not getting up out of his bed due to the pain. The last bowel movement he had was about 2 days ago. He states that since then he's had increased pain to his left side up into his left back. He denies shortness of breath but also states that he is not taking deep breaths secondary to the pain. He's also had very little urine output, according to the family at bedside what urine output he's had his been very dark and concentrated appearing. No fevers however he does state couple of days ago he had some chills. No nausea or vomiting. No rashes. Denies chest pain. No headaches or visual disturbances. REVIEW OF SYSTEMS: Constitutional: As above. Eyes: No discharge. ENT: No sore throat. Cardiovascular: No chest pain, no palpitations. Respiratory: As above. Gastrointestinal: As above. Genitourinary: As above. Musculoskeletal: As above. Skin: No rashes. Neurological: No headache. Allergies: Coded Allergies: No Known Drug Allergies (Verified , 08/05/15) Home Meds Active Scripts Buspirone Hcl (BUSPIRONE HCL) 7.5 Mg Tablet, 7.5 MG PO BID, #180 TAB 1 Refill Prov:DENISSE OLSEN MD 11/23/18 Hydrocodone Bit/Acetaminophen (HYDROCODON-ACETAMINOPHEN 5-325) 1 Each Tablet, 1 EACH PO Q8H PRN for pain, #90 TAB Refill on or after 12/23/2018 Prov:DENISSE OLSEN MD 10/19/18 Fentanyl 75 Mcg Patch (FENTANYL 75 MCG PATCH) 1 Each Patch.td72, 1 PATCH TD Q72H, #10 PATCH.72H refill on or after 12/23/2018 Prov:DENISSE OLSEN MD 10/19/18 Gabapentin (GABAPENTIN) 300 Mg Capsule, 300 MG PO BID, #180 CAPSULE 1 Refill Prov:DENISSE OLSEN MD 10/19/18 Spironolactone (SPIRONOLACTONE) 50 Mg Tablet, 50 MG PO BID, #60 TAB 11 Refills Prov:DENISSE OLSEN MD 04/25/18 Amlodipine Besylate (AMLODIPINE BESYLATE) 10 Mg Tablet, 1 TAB PO QDAY, #30 TAB 11 Refills Prov:DENISSE OLSEN MD 08/24/17 Lisinopril (LISINOPRIL) 20 Mg Tablet, 20 MG PO BID, #60 TAB 11 Refills Prov:DENISSE OLSEN MD 08/24/17 Metoprolol Succinate (METOPROLOL SUCCINATE) 100 Mg Tab.er.24h, 1 TAB PO QDAY, #11 TAB 11 Refills Prov:DENISSE OLSEN MD 08/24/17 Duloxetine Hcl (CYMBALTA) 60 Mg Capsule.dr, 60 MG PO QDAY, #30 CAP 11 Refills Prov:DENISSE OLSEN MD 08/24/17 Reported Medications Lutein Extract/Zeaxanthin Ext (LUTEIN 15 MG SOFTGEL) 1 Each Capsule, 1 EACH PO DAILY, CAPSULE 01/20/18 Polyethylene Glycol 3350 (MIRALAX) 17 Gm Powd.pack, 17 GM PO QDAY PRN for CONSTIPATION 03/12/15 Past Medical/Surgical History The patient has a past medical and surgical history of dentures, cataracts, macular degeneration, hard of hearing, aortic aneurysm, hypertension, pneumonia, GERD, hernia surgery cholecystectomy, obesity, enlarged prostate, TURP, arthritis, back surgery, shoulder surgery, chronic back pain, depression, smokes cigarettes, skin cancer, left orchiectomy. Reviewed Nurses Notes: Yes Hx Smoking: Yes Smoking Status: Current: Every Day Smoker Hx Substance Use Disorder: No Hx Alcohol Use: No Constitutional Vital Sign - Last 24 Hours 12/07/18 12/07/18 12/07/18 12/07/18 14:56 14:57 15:00 15:00 Temp 97.8 Pulse 64 Resp 18 B/P (MAP) 172/92 (118) 172/92 189/100 (129) Pulse Ox 82 O2 Delivery Room Air O2 Flow Rate 5.0 12/07/18 12/07/18 12/07/18 12/07/18 15:12 15:30 15:32 15:52 Pulse 59 57 64 B/P (MAP) 147/83 (104) Pulse Ox 92 92 89 12/07/18 12/07/18 12/07/18 12/07/18 16:00 16:12 16:32 16:37 Pulse 68 66 72 B/P (MAP) 163/95 (117) 12/07/18 12/07/18 12/07/18 12/07/18 16:57 17:00 17:17 17:30 Pulse 70 63 B/P (MAP) 152/89 (110) 145/75 (98) Pulse Ox 91 90 12/07/18 12/07/18 12/07/18 12/07/18 17:37 17:57 18:00 18:17 Pulse 66 66 65 B/P (MAP) 171/106 (127) Pulse Ox 92 92 90 12/07/18 12/07/18 12/07/18 18:18 18:30 18:38 Pulse 66 72 B/P (MAP) 160/123 (135) Pulse Ox 92 92 Physical Exam General Appearance: The patient is alert, has no immediate need for airway protection and no signs of toxicity. Eyes: 2 mm Pupils equal and round no pallor or injection. ENT, Mouth: Mucous membranes are dry, geographic tongue. Respiratory: There are no retractions, slightly diminished and coarse in the bases otherwise clear to auscultation. Cardiovascular: Regular rate and rhythm. Faint systolic murmur, no clicks or rubs. Gastrointestinal: Abdomen is somewhat firm, tenderness to the left upper and lower quadrants, hypoactive to absent bowel sounds with a few distant tinkles. No abdominal bruits. Neurological: Alert and oriented 4. Moving all extremities. Following all commands. No focal neuro deficits. Skin: Warm and dry, no rashes. No bruising. Musculoskeletal: Neck is supple non tender. Extremities are nontender, nonswollen and have full range of motion. DIFFERENTIAL DIAGNOSIS: After history and physical exam differential diagnosis was considered for abdominal pain including but not limited to appendicitis, constipation, bowel obstruction, cholecystitis, gastritis and urinary tract infection. Medical Decision Making Data Points Result Diagram: 12/07/18 1655 12/07/18 6224 Laboratory Hematology Test 12/07/18 15:53 12/07/18 16:17 12/07/18 16:55 Sodium Level 135 mmol/L (137-145) Potassium Level 4.1 mmol/L (3.5-5.0) Chloride Level 101 mmol/L (98-107) Carbon Dioxide Level 24 mmol/L (22-30) Blood Urea Nitrogen 9 mg/dl (9-21) Creatinine 0.70 mg/dl (0.66-1.25) Glomerular Filtration Rate Calc > 60.0 Random Glucose 112 mg/dl (75-110) Lactate 1.0 mmol/L (0.7-2.1) Calcium Level 8.8 mg/dl (8.4-10.2) Total Bilirubin 0.7 mg/dl (0.2-1.3) Aspartate Amino Transf (AST/SGOT) 16 U/L (0-35) Alanine Aminotransferase (ALT/SGPT) 38 U/L (0-56) Alkaline Phosphatase 99 U/L (0-126) Total Creatine Kinase 34 U/L (55-170) Total Protein 6.0 g/dl (6.3-8.2) Albumin 3.9 g/dl (3.5-5.0) Lipase 64 U/L (23-300) Urine Color Yellow Urine Clarity Clear Urine pH 5.0 pH (4.8-9.5) Urine Specific [place] 1.013 Urine Protein 30 mg/dL (NEGATIVE) Urine Glucose (UA) Negative mg/dL (NEGATIVE) Urine Ketones Negative mg/dL (NEGATIVE) Urine Blood Negative (NEGATIVE) Urine Nitrite Negative (NEGATIVE) Urine Bilirubin Negative (NEGATIVE) Urine Urobilinogen Negative mg/dL (0.2-1.9) Urine Leukocyte Esterase Negative (NEGATIVE) Urine RBC 1 /HPF (0-2/HPF) Urine WBC <1 /HPF (0-5/HPF) Urine Squamous Epithelial Cells Many /LPF (NONE-FEW) Urine Bacteria Negative /HPF (NONE-FEW) Urine Mucus Few /HPF (NONE-FEW) Red Blood Count 5.28 M/uL (4.00-5.60) Mean Corpuscular Volume 91.4 fL (80.0-96.0) Mean Corpuscular Hemoglobin 31.7 pg (26.0-33.0) Mean Corpuscular Hemoglobin Concent 34.7 g/dL (32.0-36.0) Red Cell Distribution Width 14.0 % (11.5-14.5) Mean Platelet Volume 8.2 fL (7.2-11.1) Neutrophils (%) (Auto) 77.0 % (39.4-72.5) Lymphocytes (%) (Auto) 16.9 % (17.6-49.6) Monocytes (%) (Auto) 5.0 % (4.1-12.4) Eosinophils (%) (Auto) 0.5 % (0.4-6.7) Basophils (%) (Auto) 0.6 % (0.3-1.4) Nucleated RBC Relative Count (auto) 0.0 /100WBC Neutrophils # (Auto) 9.3 K/uL (2.0-7.4) Lymphocytes # (Auto) 2.0 K/uL (1.3-3.6) Monocytes # (Auto) 0.6 K/uL (0.3-1.0) Eosinophils # (Auto) 0.1 K/uL (0.0-0.5) Basophils # (Auto) 0.1 K/uL (0.0-0.1) Nucleated RBC Absolute Count (auto) 0.00 K/uL Chemistry Test 12/07/18 15:53 12/07/18 16:17 12/07/18 16:55 Glomerular Filtration Rate Calc > 60.0 Lactate 1.0 mmol/L (0.7-2.1) Calcium Level 8.8 mg/dl (8.4-10.2) Total Bilirubin 0.7 mg/dl (0.2-1.3) Aspartate Amino Transf (AST/SGOT) 16 U/L (0-35) Alanine Aminotransferase (ALT/SGPT) 38 U/L (0-56) Alkaline Phosphatase 99 U/L (0-126) Total Creatine Kinase 34 U/L (55-170) Total Protein 6.0 g/dl (6.3-8.2) Albumin 3.9 g/dl (3.5-5.0) Lipase 64 U/L (23-300) Urine Color Yellow Urine Clarity Clear Urine pH 5.0 pH (4.8-9.5) Urine Specific [place] 1.013 Urine Protein 30 mg/dL (NEGATIVE) Urine Glucose (UA) Negative mg/dL (NEGATIVE) Urine Ketones Negative mg/dL (NEGATIVE) Urine Blood Negative (NEGATIVE) Urine Nitrite Negative (NEGATIVE) Urine Bilirubin Negative (NEGATIVE) Urine Urobilinogen Negative mg/dL (0.2-1.9) Urine Leukocyte Esterase Negative (NEGATIVE) Urine RBC 1 /HPF (0-2/HPF) Urine WBC <1 /HPF (0-5/HPF) Urine Squamous Epithelial Cells Many /LPF (NONE-FEW) Urine Bacteria Negative /HPF (NONE-FEW) Urine Mucus Few /HPF (NONE-FEW) White Blood Count 12.1 k/uL (4.5-11.0) Red Blood Count 5.28 M/uL (4.00-5.60) Hemoglobin 16.7 g/dL (14.0-18.0) Hematocrit 48.2 % (42.0-52.0) Mean Corpuscular Volume 91.4 fL (80.0-96.0) Mean Corpuscular Hemoglobin 31.7 pg (26.0-33.0) Mean Corpuscular Hemoglobin Concent 34.7 g/dL (32.0-36.0) Red Cell Distribution Width 14.0 % (11.5-14.5) Platelet Count 200 K/uL (150-450) Mean Platelet Volume 8.2 fL (7.2-11.1) Neutrophils (%) (Auto) 77.0 % (39.4-72.5) Lymphocytes (%) (Auto) 16.9 % (17.6-49.6) Monocytes (%) (Auto) 5.0 % (4.1-12.4) Eosinophils (%) (Auto) 0.5 % (0.4-6.7) Basophils (%) (Auto) 0.6 % (0.3-1.4) Nucleated RBC Relative Count (auto) 0.0 /100WBC Neutrophils # (Auto) 9.3 K/uL (2.0-7.4) Lymphocytes # (Auto) 2.0 K/uL (1.3-3.6) Monocytes # (Auto) 0.6 K/uL (0.3-1.0) Eosinophils # (Auto) 0.1 K/uL (0.0-0.5) Basophils # (Auto) 0.1 K/uL (0.0-0.1) Nucleated RBC Absolute Count (auto) 0.00 K/uL Urinalysis Test 12/07/18 16:17 Urine Color Yellow Urine Clarity Clear Urine pH 5.0 pH (4.8-9.5) Urine Specific [place] 1.013 Urine Protein 30 mg/dL (NEGATIVE) Urine Glucose (UA) Negative mg/dL (NEGATIVE) Urine Ketones Negative mg/dL (NEGATIVE) Urine Blood Negative (NEGATIVE) Urine Nitrite Negative (NEGATIVE) Urine Bilirubin Negative (NEGATIVE) Urine Urobilinogen Negative mg/dL (0.2-1.9) Urine Leukocyte Esterase Negative (NEGATIVE) Urine RBC 1 /HPF (0-2/HPF) Urine WBC <1 /HPF (0-5/HPF) Urine Squamous Epithelial Cells Many /LPF (NONE-FEW) Urine Bacteria Negative /HPF (NONE-FEW) Urine Mucus Few /HPF (NONE-FEW) EKG/Imaging Imaging PATIENT NAME: Josesito Beltran : 1935 MR: [id number] V: [id number] EXAM DATE: ORDERING PHYSICIAN: TODD FRIEDMAN TECHNOLOGIST: Location: [facility] Patient: Josesito Beltran : 1935 Visit/Account:[id number] Date of Sevice: 12/07/2018 Chest single view: HISTORY: Abdominal pain, shortness of breath COMPARISON: 01/20/2018 FINDINGS: Portable chest 1621 hours: Lung volumes are low exaggerated bronchovascular markings and heart size. Heart appears larger than on the prior study. Mediastinum appears slightly wide but likely due to positioning. There is prominence interstitial markings similar to previous allowing for differences in expansion. No consolidation or pleural effusion. No pneumothorax. Pulmonary vasculature is normal. Atherosclerotic changes are present in the aorta. IMPRESSION: Low lung volumes accentuating bronchovascular markings, heart and mediastinal contours. There is no evidence of congestive heart failure or pneumonia. Report Dictated By: Khadijah Denson MD at 12/07/2018 5:05 PM Report E-Signed By: Khadijah Denson MD at 12/07/2018 5:07 PM WSN:[email or web address] PATIENT NAME: Josesito Beltran : 1935 MR: [id number] V: [id number] EXAM DATE: ORDERING PHYSICIAN: TODD FRIEDMAN TECHNOLOGIST: Location: [facility] Patient: Josesito Beltran : 1935 Visit/Account:[id number] Date of Sevice: 12/07/2018 CT abdomen and pelvis with IV contrast Indication: Abdominal pain. Comparison: 11/06/2018.. Technique: Axial CT images were obtained through the abdomen and pelvis during injection of nonionic iodinated intravenous contrast. Reformatted coronal and sagittal images were also obtained. One of the following dose optimization techniques was utilized in the performance of this exam: Automated exposure control; adjustment of the mA and/or kV according to the patient's size; or use of an iterative reconstruction technique. Specific details can be referenced in the facility's radiology CT exam operational policy. Contrast: 75 ml of Isovue-370 IV contrast. Findings: Lower lung sierra: Dependent atelectasis, otherwise clear. Liver: Ductal dilatation is again present and not significantly changed. No discrete lesions. The vasculature appears to be patent. Biliary: Status post cholecystectomy. Common bile duct is again dilated up to 1 cm and is stable. No intraductal abnormality. Pancreas: No focal abnormality or ductal dilatation. Spleen: Normal appearance. Adrenal glands: Both adrenal glands are again prominent. The left adrenal gland shows a stable 1.9 x 1.0 cm nodule. No new findings to the adrenal glands. Kidneys / retroperitoneum: No evidence of nephrolithiasis or hydronephrosis. Vascular calcifications are again present. Scarring seen in the left lower kidney. No discrete renal lesions. Bowel / peritoneum / mesenteries: The colon shows no focal normality. Stool seen in the rectosigmoid colon. The appendix is normal. The small bowel shows no focal normality or obstruction. Stomach shows fluid within the lumen without focal abnormality. No free air, free fluid, fluid collections or areas of inflammation. Lymph node assessment: No pathologic adenopathy identified. Pelvic structures: Appear unremarkable. Vessels: Moderate atherosclerotic calcifications seen throughout abdominal aorta and branches including mesenteric. The distal abdominal aorta again shows a stent graft in place, aortic/biiliac. This appears to be patent. There is no acute or focal abnormality and no change. Musculoskeletal / Body wall: No acute or aggressive osseous abnormality. There is mild worsening compression of the L1 vertebral body mainly superior endplate which is no shift percent compressed in the mid anterior aspect. No retropulsion. No new spine findings. There are still degenerative changes most prominent at the L3-4 level with mild posterior listhesis of L3 over L4 which is stable. IMPRESSION: 1. No acute intra-abdominal abnormality 2. Worsening compression fracture of the L1 vertebral body without retropulsion. 3. Multiple stable chronic findings as above. Report Dictated By: Bobby Howard at 12/07/2018 5:18 PM Report E-Signed By: Bobby Howard at 12/07/2018 5:27 PM WSN:[email or web address] ED Course/Re-evaluation Clinical Indication for ER IV: Hydration, IV Access ED Course The patient was admitted to room. A history and physical were obtained. Differential diagnoses were considered. An IV was started. A CBC, CMP were obtained. A 1 L normal saline bolus was given. 4 mg IV Zofran, 50 g IV fentanyl followed by 0.5 mg IV Dilaudid. A single view chest, CT of the abdomen and pelvis were obtained. CT of abdomen and pelvis negative for any acute intra- abdominal pathology, they did note that the L1 compression fracture is worse than the previous study. I did review the results with the patient and his family at the bedside. I also spoke with Dr. Yoo, the orthopedic surgeon solar installation helper, he states the patient should be placed in a TLSO brace as noted below, I also spoke with Dr. Paige Hernandez, the hospitalist on-call, he is accepting the patient in the hospitalist services for worsening compression fracture of L1 and pain. Patient was given an additional 1 mg IV Dilaudid which did not provide a significant amount of pain relief, he was also given 25 mg IV ketamine for pain relief. I did attempt to contact physical therapy for the TLSO brace however they are not in at this time, he will be placed in the brace tomorrow and evaluated by physical therapy. Patient, family at the bedside were agreeable with this plan of care. 12/07/2018 5:58:40 pm I did speak with Dr. Yoo regarding the patient's CT results with the worsening compression fracture of the L1 vertebral body, he said the patient should be placed in a TLSO brace, I also spoke with Dr. Paige Hernandez, the hospitalist solar installation helper he is accepting the patient and the hospitalist services for L1 compression fracture and worsening pain. Decision to Disposition Date: Dec 07, 2018 Decision to Disposition Time: 17:58 Depart Departure Latest Vital Signs Vital Signs Date Time Temp Pulse Resp B/P (MAP) Pulse Ox O2 Delivery O2 Flow Rate FiO2 12/07/18 18:38 72 92 12/07/18 18:30 160/123 (135) 12/07/18 15:00 5.0 12/07/18 14:57 97.8 18 Room Air Impression: Primary Impression: Compression fracture of L1 lumbar vertebra Condition: Improved Disposition: Admitted from ER Referrals: DENISSE OLSEN MD (PCP) Problem Qualifiers Primary Impression: Compression fracture of L1 lumbar vertebra Encounter type: subsequent encounter Fracture healing: with routine healing Qualified Codes: S32.010D - Wedge compression fracture of first lumbar vertebra, subsequent encounter for fracture with routine healing TODD FRIEDMAN [employer]IR[employer]UT[employer] ENGINEER-BC Dec 07, 2018 14:56
[2018-12-07] MEDS ORDERED: NS(*) 0.9% 1000 ML BAG 1,000 ML IV ONE ×2 (15:19→17:05)
[2018-12-07] MEDS ORDERED: ONDANSETRON 4 MG/2 ML VIAL IVP ONE (15:20)
[2018-12-07] MEDS ORDERED: fentaNYL CITR 100 MCG/2 ML AMP IVP ONE (15:20)
[2018-12-07] MEDS ORDERED: IOPAMIDOL 76% 100 ML INFUS BTL 100 ML ONE (15:37)
[2018-12-07] MEDS ORDERED: HYDROMORPHONE HCL 1 MG/ML SYRINGE IVP ONE ×2 (16:00→17:05)
[2018-12-07 17:01] LABS: PLATELET COUNT, AUTOMATED 200 K/uL (150-450)
--- NOTE | 2018-12-07 17:14 | RADIOLOGY IMAGING REPORT ---
FACILITY: [facility] [place] PATIENT NAME: Josesito Beltran : 1935 MR: [id number] V: [id number] EXAM DATE: ORDERING PHYSICIAN: TODD FRIEDMAN TECHNOLOGIST: Location: [facility] Patient: Josesito Beltran : 1935 Visit/Account:[id number] Date of Sevice: 12/07/2018 Chest single view: HISTORY: Abdominal pain, shortness of breath COMPARISON: 01/20/2018 FINDINGS: Portable chest 1621 hours: Lung volumes are low exaggerated bronchovascular markings and he art size. Heart appears larger than on the prior study. Mediastinum appears slightly wide but likel y due to positioning. There is prominence interstitial markings similar to previous allowing for dif ferences in expansion. No consolidation or pleural effusion. No pneumothorax. Pulmonary vasculatur e is normal. Atherosclerotic changes are present in the aorta. IMPRESSION: Low lung volumes accentuating bronchovascular markings, heart and mediastinal contours. There is no evidence of congestive heart failure or pneumonia. Report Dictated By: Khadijah Denson MD at 12/07/2018 5:05 PM Report E-Signed By: Khadijah Denson MD at 12/07/2018 5:07 PM WSN:[email or web address]
--- NOTE | 2018-12-07 17:33 | RADIOLOGY IMAGING REPORT ---
FACILITY: [facility] [place] PATIENT NAME: Josesito Beltran : 1935 MR: [id number] V: [id number] EXAM DATE: ORDERING PHYSICIAN: TODD FRIEDMAN TECHNOLOGIST: [place] [facility] [place]: Josesito Beltran : 1935 Visit/Account:[id number] Date of Sevice: 12/07/2018 CT abdomen and pelvis with IV contrast Indication: Abdominal pain. Comparison: 11/06/2018.. Technique: Axial CT images were obtained through the abdomen and pelvis during injection of nonioni c iodinated intravenous contrast. Reformatted coronal and sagittal images were also obtained. One of the following dose optimization techniques was utilized in the performance of this exam: Autom ated exposure control; adjustment of the mA and/or kV according to the patient's size; or use of an i terative reconstruction technique. Specific details can be referenced in the facility's radiology C T exam operational policy. Contrast: 75 ml of Isovue-370 IV contrast. Findings: Lower lung sierra: Dependent atelectasis, otherwise clear. Liver: Ductal dilatation is again present and not significantly changed. No discrete lesions. The vasculat ure appears to be patent. Biliary: Status post cholecystectomy. Common bile duct is again dilated up to 1 cm and is stable. N o intraductal abnormality. Pancreas: No focal abnormality or ductal dilatation. Spleen: Normal appearance. Adrenal glands: Both adrenal glands are again prominent. The left adrenal gland shows a stable 1.9 x 1.0 cm nodule. No new findings to the adrenal glands. Kidneys / retroperitoneum: No evidence of nephrolithiasis or hydronephrosis. Vascular calcifications are again present. Scarring seen in the left lower kidney. No discrete renal lesions. Bowel / peritoneum / mesenteries: The colon shows no focal normality. Stool seen in the rectosigmoid colon. The appendix is normal. The small bowel shows no focal normality or obstruction. Stomach s hows fluid within the lumen without focal abnormality. No free air, free fluid, fluid collections or areas of inflammation. Lymph node assessment: No pathologic adenopathy identified. Pelvic structures: Appear unremarkable. Vessels: Moderate atherosclerotic calcifications seen throughout abdominal aorta and branches includi ng mesenteric. The distal abdominal aorta again shows a stent graft in place, aortic/biiliac. This appears to be patent. There is no acute or focal abnormality and no change. Musculoskeletal / Body wall: No acute or aggressive osseous abnormality. There is mild worsening com pression of the L1 vertebral body mainly superior endplate which is no shift percent compressed in th e mid anterior aspect. No retropulsion. No new spine findings. There are still degenerative change s most prominent at the L3-4 level with mild posterior listhesis of L3 over L4 which is stable. IMPRESSION: 1. No acute intra-abdominal abnormality 2. Worsening compression fracture of the L1 vertebral body without retropulsion. 3. Multiple stable chronic findings as above. Report Dictated By: Bobby Howard at 12/07/2018 5:18 PM Report E-Signed By: Bobby Howard at 12/07/2018 5:27 PM WSN:[email or web address]
[2018-12-07] MEDS ORDERED: KETAMINE HCL-NS 50 MG/5 ML SYR IVP ONE (18:10)
[2018-12-07 19:52] VITALS: BP 202/90
[2018-12-07 20:05] VITALS: BP 161/90
[2018-12-07] MEDS ORDERED: NS(*) 0.9% 1000 ML BAG 1,000 ML IV PRN (20:13)
[2018-12-07] MEDS ORDERED: HYDROMORPHON PCA10MG/50ML(CII) 10 MG/50 ML PLAST..BAG IV PRN (20:15)
--- NOTE | 2018-12-07 20:36 | History & Physical ---
History of Present Illness Chief Complaint Back and abdominal pain History of Present Illness 83yo male with PMHx significant for AAA s/p endograft placement, HTN, chronic pain s/p multiple back surgeries. He reports onset of mid-back pain approx imately one month ago. He was evaluated at that time and found to have an L1 compression fracture. His pain initially seemed to remain fairly stable, but not resolving. Over the past 5-7 days, he started to have some increasing back pain with radiation into proximal left thigh and also developed some lower abdominal pain. He denied any N/V/diarrhea/fevers/chills. His appetite has been poor and is not eating or drinking very well of late. He denied any difficulty urinating, but had noticed decreased output. He was having more difficulty ambulating and had spent most of the last 2-3 days in bed. He was evaluated in the ER today and found to have increasing compression of L1 (no retropulsion), but no acute appearing intra-abdominal findings. His lab was unremarkable other than a slightly elevated WBC count. He was recommended for admission. History Problems: (1) Thyroid nodule Status: Chronic (2) Tobacco abuse Status: Chronic (3) Abnormal CT of the chest Status: Chronic (4) Abdominal aortic aneurysm Status: Chronic (5) Osteoporosis Status: Chronic (6) GERD (gastroesophageal reflux disease) Status: Chronic (7) Low back pain Status: Chronic (8) Malignant neoplasm of skin of face Status: Chronic (9) Depression, endogenous Status: Chronic (10) Chronic pain syndrome Status: Chronic (11) Hypertension, benign Onset Date: 03/19/2014 Status: Chronic (12) Constipation Status: Chronic (13) Macular degeneration Status: Chronic (14) History of lumbosacral spine surgery Status: Resolved (15) History of cholecystectomy Status: Resolved (16) History of endovascular stent graft for abdominal aortic aneurysm Status: Resolved Home Meds Active Scripts Buspirone Hcl (BUSPIRONE HCL) 7.5 Mg Tablet, 7.5 MG PO BID, #180 TAB 1 Refill Prov:DENISSE LAU MD 11/23/18 Hydrocodone Bit/Acetaminophen (HYDROCODON-ACETAMINOPHEN 5-325) 1 Each Tablet, 1 EACH PO Q8H PRN for pain, #90 TAB Refill on or after 12/23/2018 Prov:DENISSE LAU MD 10/19/18 Fentanyl 75 Mcg Patch (FENTANYL 75 MCG PATCH) 1 Each Patch.td72, 1 PATCH TD Q72H, #10 PATCH.72H refill on or after 12/23/2018 Prov:DENISSE LAU MD 10/19/18 Gabapentin (GABAPENTIN) 300 Mg Capsule, 300 MG PO BID, #180 CAPSULE 1 Refill Prov:DENISSE LAU MD 10/19/18 Spironolactone (SPIRONOLACTONE) 50 Mg Tablet, 50 MG PO BID, #60 TAB 11 Refills Prov:DENISSE LAU MD 04/25/18 Amlodipine Besylate (AMLODIPINE BESYLATE) 10 Mg Tablet, 1 TAB PO QDAY, #30 TAB 11 Refills Prov:DENISSE LAU MD 08/24/17 Lisinopril (LISINOPRIL) 20 Mg Tablet, 20 MG PO BID, #60 TAB 11 Refills Prov:DENISSE LAU MD 08/24/17 Metoprolol Succinate (METOPROLOL SUCCINATE) 100 Mg Tab.er.24h, 1 TAB PO QDAY, #11 TAB 11 Refills Prov:DENISSE LAU MD 08/24/17 Duloxetine Hcl (CYMBALTA) 60 Mg Capsule.dr, 60 MG PO QDAY, #30 CAP 11 Refills Prov:DENISSE LAU MD 08/24/17 Reported Medications Lutein Extract/Zeaxanthin Ext (LUTEIN 15 MG SOFTGEL) 1 Each Capsule, 1 EACH PO DAILY, CAPSULE 01/20/18 Polyethylene Glycol 3350 (MIRALAX) 17 Gm Powd.pack, 17 GM PO QDAY PRN for CONSTIPATION 03/12/15 Allergies: Coded Allergies: No Known Drug Allergies (Verified , 08/05/15) Patient History: FH: CHF (congestive heart failure) FATHER, , Age:84 FH: dementia BROTHER OR SISTER, , Age:Unknown FHx: stroke BROTHER OR SISTER, , Age:Unknown Staph infection MOTHER, , Age:92 Hx Smoking: Yes (1PPD) Smoking Status: Current: Every Day Smoker, Heavy Tobacco Smoker Hx Alcohol Use: No Hx Substance Use Disorder: No Review of Systems Constitutional: No Fever, No Night Sweats Neurological: Weakness; No Syncope Cardiovascular: No Chest Pain, No Palpitations Respiratory: No Shortness of Breath Gastrointestinal: No Nausea, No Vomiting, No Diarrhea; Constipation; No Hematemesis, No Hematochezia, No Melena; Abdominal Pain Genitourinary: No Dysuria Musculoskeletal: Pain, Impaired Mobility Psychiatric: Depression, Anxiety Exam Vital Signs Vital Signs Date Time Temp Pulse Resp B/P (MAP) Pulse Ox O2 Delivery O2 Flow Rate FiO2 12/07/18 20:05 161/90 (113) 12/07/18 19:52 98.5 68 24 92 Nasal Cannula 5.0 General Appearance: Alert, Awake Neuro: Other (Motor exam is grossly intact with generalized weakness in all groups) Eyes: PERRLA, Other (sclera anicteric) ENT: Oropharynx Clear Neck: No Masses Cardiovascular: Regular Rate and Rhythm (with systolic murmur at RUSB), No JVD Respiratory: Other (decreased breath sounds throughout/few scattered rhonchi/no rales or wheezes noted) Chest: No Tenderness GI: Other (soft/but tenderness reported with palpation in lower abdomen) : No CVA Tenderness Musculoskeletal: Other (some spasm of lumbar paraspinal muscles/moderate pain with straight leg raising bilaterally) Extremities: Warm, Perfused Integumentary: Other (dystrophic nail changes) Psych: Alert & Oriented X3 Medical Decision Making Data Points Result Diagram: 12/07/18 1655 12/07/18 1553 Item Value Date Time Urine Mucus Few /HPF 12/07/18 1617 Urine Bacteria Negative /HPF 12/07/18 1617 Urine Squamous Epithelial Cells Many /LPF H 12/07/18 1617 Urine WBC <1 /HPF 12/07/18 1617 Urine RBC 1 /HPF 12/07/18 1617 Urine Leukocyte Esterase Negative 12/07/18 1617 Urine Urobilinogen Negative mg/dL 12/07/18 1617 Urine Bilirubin Negative 12/07/18 1617 Urine Nitrite Negative 12/07/18 1617 Urine Blood Negative 12/07/18 1617 Urine Ketones Negative mg/dL 12/07/18 1617 Urine Glucose (UA) Negative mg/dL 12/07/18 1617 Urine Protein 30 mg/dL 12/07/18 1617 Urine Specific [place] 1.013 12/07/18 1617 Urine pH 5.0 pH 12/07/18 1617 Urine Clarity Clear 12/07/187 Urine Color Yellow 12/07/18 1617 Total Creatine Kinase 34 U/L L 12/07/18 1553 Total Protein 6.0 g/dl L 12/07/18 1553 Albumin 3.9 g/dl 12/07/18 1553 Lipase 64 U/L 12/07/18 1553 Alkaline Phosphatase 99 U/L 12/07/18 1553 Aspartate Amino Transf (AST/SGOT) 16 U/L 12/07/18 1553 Total Bilirubin 0.7 mg/dl 12/07/18 1553 Calcium Level 8.8 mg/dl 12/07/18 1553 Alanine Aminotransferase (ALT/SGPT) 38 U/L 12/07/18 1553 Lactate 1.0 mmol/L 12/07/18 155 EKG / Imaging Imaging PATIENT NAME: Josesito Beltran : 1935 MR: [id number] V: [id number] EXAM DATE: ORDERING PHYSICIAN: TODD FRIEDMAN TECHNOLOGIST: Location: [facility] Patient: Josesito Beltran : 1935 Visit/Account:[id number] Date of Sevice: 12/07/2018 CT abdomen and pelvis with IV contrast Indication: Abdominal pain. Comparison: 11/06/2018.. Technique: Axial CT images were obtained through the abdomen and pelvis during injection of nonionic iodinated intravenous contrast. Reformatted coronal and sagittal images were also obtained. One of the following dose optimization techniques was utilized in the performance of this exam: Automated exposure control; adjustment of the mA and/or kV according to the patient's size; or use of an iterative reconstruction technique. Specific details can be referenced in the facility's radiology CT exam operational policy. Contrast: 75 ml of Isovue-370 IV contrast. Findings: Lower lung sierra: Dependent atelectasis, otherwise clear. Liver: Ductal dilatation is again present and not significantly changed. No discrete lesions. The vasculature appears to be patent. Biliary: Status post cholecystectomy. Common bile duct is again dilated up to 1 cm and is stable. No intraductal abnormality. Pancreas: No focal abnormality or ductal dilatation. Spleen: Normal appearance. Adrenal glands: Both adrenal glands are again prominent. The left adrenal gland shows a stable 1.9 x 1.0 cm nodule. No new findings to the adrenal glands. Kidneys / retroperitoneum: No evidence of nephrolithiasis or hydronephrosis. Vascular calcifications are again present. Scarring seen in the left lower kidney. No discrete renal lesions. Bowel / peritoneum / mesenteries: The colon shows no focal normality. Stool seen in the rectosigmoid colon. The appendix is normal. The small bowel shows no focal normality or obstruction. Stomach shows fluid within the lumen without focal abnormality. No free air, free fluid, fluid collections or areas of inflammation. Lymph node assessment: No pathologic adenopathy identified. Pelvic structures: Appear unremarkable. Vessels: Moderate atherosclerotic calcifications seen throughout abdominal aorta and branches including mesenteric. The distal abdominal aorta again shows a stent graft in place, aortic/biiliac. This appears to be patent. There is no acute or focal abnormality and no change. Musculoskeletal / Body wall: No acute or aggressive osseous abnormality. There is mild worsening compression of the L1 vertebral body mainly superior endplate which is no shift percent compressed in the mid anterior aspect. No retropulsion. No new spine findings. There are still degenerative changes most prominent at the L3-4 level with mild posterior listhesis of L3 over L4 which is stable. IMPRESSION: 1. No acute intra-abdominal abnormality 2. Worsening compression fracture of the L1 vertebral body without retropulsion. 3. Multiple stable chronic findings as above. Report Dictated By: Bobby Howard at 12/07/2018 5:18 PM Report E-Signed By: Bobby Howard at 12/07/2018 5:27 PM WSN:[email or web address] PATIENT NAME: Josesito Beltran : 1935 MR: [id number] V: [id number] EXAM DATE: ORDERING PHYSICIAN: TODD FRIEDMAN TECHNOLOGIST: Location: [facility] Patient: Josesito Beltran : 1935 Visit/Account:[id number] Date of Sevice: 12/07/2018 Chest single view: HISTORY: Abdominal pain, shortness of breath COMPARISON: 01/20/2018 FINDINGS: Portable chest 1621 hours: Lung volumes are low exaggerated bronchovascular markings and heart size. Heart appears larger than on the prior study. Mediastinum appears slightly wide but likely due to positioning. There is prominence interstitial markings similar to previous allowing for differences in expansion. No consolidation or pleural effusion. No pneumothorax. Pulmonary vasculature is normal. Atherosclerotic changes are present in the aorta. IMPRESSION: Low lung volumes accentuating bronchovascular markings, heart and m ediastinal contours. There is no evidence of congestive heart failure or pneumonia. Report Dictated By: Khadijah Denson MD at 12/07/2018 5:05 PM Report E-Signed By: Khadijah Denson MD at 12/07/2018 5:07 PM WSN:[email or web address] Assessment and Plan Problems: (1) Compression fracture of L1 lumbar vertebra Status: Acute Assessment & Plan: He appears to have some further acute compression of L1. He has become essentially nonambulatory due to the pain. Will admit for pain control, PT/OT, possible bracing. Watch closely. (2) Abdominal pain Status: Acute Assessment & Plan: No obvious source at this time. Question if related to the compression fracture. Watch closely and proceed with further work-up as needed. (3) Depression, endogenous Status: Chronic Assessment & Plan: Continue his usual regimen with Cymbalta and Buspar. (4) Chronic pain syndrome Status: Chronic Assessment & Plan: He has been managed with fentanyl patch 75mcg q72hrs, Lortab for breakthrough pain, and gabapentin. Will need to hold the fentanyl and Lortab initially while on IV Dilaudid CHILD CARE GROUP LEADER to help get control of acute pain. (5) Abnormal CT of the chest Status: Chronic Assessment & Plan: He has been following with Dr. Lau. Repeat CT scan of the chest is planned in near future. (6) Hypertension, benign Onset Date: 03/19/2014 Status: Chronic Assessment & Plan: Monitor BPs. Continue metoprolol, amlodipine, lisinopril with parameters. (7) Systolic murmur Assessment & Plan: He states he has not been advised he had a murmur in the past. I would suspect he may have some mild aortic stenosis/sclerosis. Will check echocardiogram. Copies to: DENISSE LAU MD ; Venous Thromboembolism Antithrombotics Is Pt On Any Antithrombotics?: Yes Exam Sepsis Risk: No Definite Risk Problem Qualifiers (1) Compression fracture of L1 lumbar vertebra: Encounter type: subsequent encounter Fracture healing: with routine healing Qualified Codes: S32.010D - Wedge compression fracture of first lumbar vertebra, subsequent encounter for fracture with routine healing WAYNE NEVAREZ MD Dec 07, 2018 20:36
[2018-12-07] MEDS ORDERED: PCA LOCKBOX KEYS XX ONE (21:17)
[2018-12-07] MEDS: LISINOPRIL 20 MG TAB PO SCH (22:18)
[2018-12-07] MEDS: GABAPENTIN 300 MG CAP PO SCH (22:18)
[2018-12-07] MEDS: busPIRone HCL 5 MG TAB PO SCH (22:19)
[2018-12-07 22:25] VITALS: BP 195/93
[2018-12-07 23:50] VITALS: BP 180/78
[2018-12-08 00:19] VITALS: BP 168/74
[2018-12-08 05:42] VITALS: BP 180/74
[2018-12-08 06:00] LABS: PLATELET COUNT, AUTOMATED 166 K/uL (150-450)
[2018-12-08 07:25] VITALS: BP 144/79
[2018-12-08] MEDS: amLODIPine BESYL(*) 5 MG TAB PO SCH (09:00)
[2018-12-08] MEDS: LISINOPRIL 20 MG TAB PO SCH ×2 (09:00→20:21)
--- NOTE | 2018-12-08 09:30 | Hospitalist Progress Note ---
Subjective Progress Notes Subjective He was admitted with compression fracture. Patient reports he is still having significant amount of pain. Patient Complains of: Cardiovascular: No: Chest Pain Respiratory: No: Shortness of Breath Physical Exam Vital Signs Date Time Temp Pulse Resp B/P (MAP) Pulse Ox O2 Delivery O2 Flow Rate FiO2 12/08/18 07:25 97.7 53 13 144/79 (100) 93 Nasal Cannula 3.0 Intake and Output 12/08/18 01:01 Intake Total 2000 ml Output Total 150 ml Balance 1850 ml Intake Oral 100 ml IV Total 1900 ml Output Urine Total 150 ml General Appearance: Alert, Awake, No Acute Distress, Afebrile Neuro: No Gross deficits Cardiovascular: Regular Rate and Rhythm Respiratory: No Respiratory Distress, Clear to Auscultation Psych: Alert & Oriented X3, Appropriate Mood & Affect Result Diagram: 12/08/1852812/08/18528 Assessment and Plan Problems: (1) Compression fracture of L1 lumbar vertebra Status: Acute Assessment & Plan: He appears to have some further acute compression of L1. He has become essentially nonambulatory due to the pain. Will admit for pain control, PT/OT, possible bracing. He will be switched from Dilaudid BOTTOM SAW OPERATOR to his usual home regimen of Fentanyl patch and Lortab. (2) Abdominal pain Status: Acute Assessment & Plan: No obvious source at this time. Question if related to the compression fracture. Watch closely and proceed with further work-up as needed. (3) Depression, endogenous Status: Chronic Assessment & Plan: Continue his usual regimen with Cymbalta and Buspar. (4) Chronic pain syndrome Status: Chronic Assessment & Plan: He has been managed with fentanyl patch 75mcg q72hrs, Lortab for breakthrough pain, and gabapentin. Will need to hold the fentanyl and Lortab initially while on IV Dilaudid BOTTOM SAW OPERATOR to help get control of acute pain. (5) Abnormal CT of the chest Status: Chronic Assessment & Plan: He has been following with Dr. Lau. Repeat CT scan of the chest is planned in near future. (6) Hypertension, benign Onset Date: 03/19/2014 Status: Chronic Assessment & Plan: Monitor BPs. Continue metoprolol, amlodipine, lisinopril with parameters. (7) Systolic murmur Assessment & Plan: He states he has not been advised he had a murmur in the past. I would suspect he may have some mild aortic stenosis/sclerosis. Will check echocardiogram. Exam Sepsis Risk: No Definite Risk Problem Qualifiers (1) Compression fracture of L1 lumbar vertebra: Encounter type: subsequent encounter Fracture healing: with routine healing Qualified Codes: S32.010D - Wedge compression fracture of first lumbar vertebra, subsequent encounter for fracture with routine healing FERNANDA TORRES Dec 08, 2018 09:30
[2018-12-08] MEDS: busPIRone HCL 5 MG TAB PO SCH ×2 (09:45→20:22)
[2018-12-08] MEDS: METOPROLOL SUCC XL 50 MG TABCR 50 MG TAB.ER.24H PO SCH (09:45)
[2018-12-08] MEDS: GABAPENTIN 300 MG CAP PO SCH ×2 (09:46→20:21)
[2018-12-08] MEDS: DULoxetine HCL 30 MG CAPCR PO SCH (09:46)
[2018-12-08] MEDS: ENOXAPARIN 40 MG/0.4ML SYR SC SCH (09:47)
[2018-12-08] MEDS: LIDOCAINE 5% PATCH TP SCH (09:47)
[2018-12-08] MEDS: POLYETHYLENE GLYCOL 17 GM PKT PO SCH (09:47)
[2018-12-08] MEDS ORDERED: FENTANYL 75 MCG TD SCH (09:50)
[2018-12-08] MEDS ORDERED: TDSY TOP SCH (10:15)
[2018-12-08] MEDS ORDERED: FENTANYL TOP SCH (10:15)
[2018-12-08] MEDS: APAP/HYDROCODONE 325/5 TAB PO PRN ×2 (10:37→17:25)
[2018-12-08 11:16] VITALS: BP 127/64
--- NOTE | 2018-12-08 12:59 | NUR ---
Physical Therapy Impression PT eval complete. Attempted supine>sit transfer via log roll technique, Pt unable. Attempted supine>sit using draw-sheet with total A x3, Pt unable to tolerate sitting and immediately returned to supine. TLSO unable to be donned. Will attempt again when Pt is able to tolerate sitting. Pt will require additional rehab prior to returning home. Physical Therapy Goals 1. Mod I bed mobility via log rolling technique. 2. SBA transfers. 3. SBA gait x 150' with RW. 4. Independent donning/doffing TLSO. Patient's Goals
--- NOTE | 2018-12-08 13:21 | NUR ---
Occupational Therapy Impression Initial OT/PT evaluation. Total Ax3 supine to sit and sit to supine. Pt unable to tolerate sitting EOB due to pain in abdomen and back. Pt returned to supine, and reporting comfort. Pt will benefit from further rehab to optimize (I) and activity tolerance for ADLs. Occupational Therapy Goals Patient's Goal
[2018-12-08 14:41] VITALS: BP 144/78
--- NOTE | 2018-12-08 15:20 | NUR ---
ECF Referral - Met with patient and daughter, discussed ECF rehab philosophy. Resident seemed slightly confused. [place] that he will trigger a PASRR so LT101 consent obtained from daughter who is POA after explaining the process. Due to ongoing concerns, received permission from Herberth Whaley RN to plan admission for Tuesday. If he is medically stable will admit on Tuesday.
[2018-12-08 19:20] VITALS: BP 126/82
[2018-12-08] MEDS: PATCH REMOVAL 1 EA TP SCH (21:00)
[2018-12-09 02:14] VITALS: BP 182/72
[2018-12-09] MEDS: IBUPROFEN 600 MG TAB PO PRN ×2 (02:51→22:17)
[2018-12-09 06:06] VITALS: BP 188/70
[2018-12-09] MEDS: APAP/HYDROCODONE 325/5 TAB PO PRN ×2 (06:22→16:18)
[2018-12-09 07:01] VITALS: BP 154/69
[2018-12-09] MEDS: GABAPENTIN 300 MG CAP PO SCH ×2 (08:44→21:31)
[2018-12-09] MEDS: amLODIPine BESYL(*) 5 MG TAB PO SCH (08:44)
[2018-12-09] MEDS: DULoxetine HCL 30 MG CAPCR PO SCH (08:44)
[2018-12-09] MEDS: POLYETHYLENE GLYCOL 17 GM PKT PO SCH (08:45)
[2018-12-09] MEDS: LISINOPRIL 20 MG TAB PO SCH ×2 (08:45→21:32)
[2018-12-09] MEDS: ENOXAPARIN 40 MG/0.4ML SYR SC SCH (08:45)
[2018-12-09] MEDS: METOPROLOL SUCC XL 50 MG TABCR 50 MG TAB.ER.24H PO SCH (08:45)
[2018-12-09] MEDS: LIDOCAINE 5% PATCH TP SCH (08:45)
[2018-12-09] MEDS: busPIRone HCL 5 MG TAB PO SCH ×2 (08:45→21:31)
[2018-12-09 11:15] VITALS: BP 118/64
--- NOTE | 2018-12-09 12:52 | NUR ---
Physical Therapy Impression Pt requesting to get OOB to transfer for BM. Attempted log roll technique and Total A x 2 with draw sheet, both transfers to EOB were unsuccessful. Pt reporting a significant amount of pain, but able to verbalize if it was stabbing, burning, cramping etc. Pt refused any further trials to get OOB. Pt rolls side/side in bed without difficulty. Pt able to perform supine bridge to get bed burger placed, no c/o pain. Nursing present during session. Pt will require a significant amount of encouragement for participation with therapy to improve mobility/function. Physical Therapy Goals 1. Mod I bed mobility via log rolling technique. 2. SBA transfers. 3. SBA gait x 150' with RW. 4. Independent donning/doffing TLSO. Patient's Goals
--- NOTE | 2018-12-09 12:57 | NUR ---
Physical Therapy Impression Pt received orders from ortho to get OOB this date. Two nurses present to assist during session. Log roll towards L with Min A x 2. Sit at EOB with CGA/Min A. Total A to sharmaine brace. Sit <> clinical documentation developer EZ lift with Min/Mod A x 2 with vc's and extensive encouragement. Pt tolerated standing in EZ lift with CGA x 1 minute. Pt up in chair for lunch at end of session. Required nursing and this therapist to return to room multiple times to remind pt of importance of being OOB and waiting to transfer back to supine. Pt seems to have poor carry over. Recommend continued use of EZ lift and two people for all transfers at this time to optimize pt and staff safety. Cont. with POC. Physical Therapy Goals 1. Mod I bed mobility via log rolling technique. 2. SBA transfers. 3. SBA gait x 150' with RW. 4. Independent donning/doffing TLSO. Patient's Goals
--- NOTE | 2018-12-09 14:32 | Hospitalist Progress Note ---
Subjective Progress Notes Subjective Amaris overnight, no new concerns this am. He is being fitted for TLSO brace this am with PT. Patient Complains of: Gastrointestinal: No Nausea, No Vomiting Musculoskeletal: Pain Physical Exam Vital Signs Date Time Temp Pulse Resp B/P (MAP) Pulse Ox O2 Delivery O2 Flow Rate FiO2 12/09/18 11:15 98.1 56 16 118/64 (82) 95 Nasal Cannula 3.0 Intake and Output 12/09/18 07:01 Intake Total 640 ml Output Total 1570 ml Balance -930 ml Intake Oral 640 ml Output Urine Total 1570 ml General Appearance: Alert, Awake, No Acute Distress Neuro: No Gross deficits Cardiovascular: Other (Murmur, RRR) Respiratory: No Respiratory Distress Extremities: Soft and Non Tender, Warm, Pulses, Perfused; No Edema Result Diagram: 12/08/1852812/08/18528 Assessment and Plan Problems: (1) Compression fracture of L1 lumbar vertebra Status: Acute Assessment & Plan: He appears to have some further acute compression of L1. He has become essentially nonambulatory due to the pain. PT/OT, bracing and pain control. Fentanyl patch and Lortab. (2) Abdominal pain Status: Acute Assessment & Plan: Reports this is chronic pain he has had. Watch closely and proceed with further work-up as needed. (3) Depression, endogenous Status: Chronic Assessment & Plan: Continue his usual regimen with Cymbalta and Buspar. (4) Chronic pain syndrome Status: Chronic Assessment & Plan: He has been managed with fentanyl patch 75mcg q72hrs, Lortab for breakthrough pain, and gabapentin. (5) Abnormal CT of the chest Status: Chronic Assessment & Plan: He has been following with Dr. Lau. Repeat CT scan of the chest is planned in near future. (6) Hypertension, benign Onset Date: 03/19/2014 Status: Chronic Assessment & Plan: Monitor BPs. Continue metoprolol, amlodipine, lisinopril with parameters. (7) Systolic murmur Assessment & Plan: He states he has not been advised he had a murmur in the past. I would suspect he may have some mild aortic stenosis/sclerosis. Will check echocardiogram. Exam Sepsis Risk: No Definite Risk Problem Qualifiers (1) Compression fracture of L1 lumbar vertebra: Encounter type: subsequent encounter Fracture healing: with routine healing Qualified Codes: S32.010D - Wedge compression fracture of first lumbar vertebra, subsequent encounter for fracture with routine healing MOHSEN ALMONTE DO Dec 09, 2018 14:32
[2018-12-09 14:58] VITALS: BP 126/67
[2018-12-09 19:04] VITALS: BP 135/69
[2018-12-09] MEDS: PATCH REMOVAL 1 EA TP SCH (21:00)
[2018-12-09] MEDS: MELATONIN 3 MG TAB PO PRN (22:17)
[2018-12-10 02:49] VITALS: BP 128/59
[2018-12-10 07:23] VITALS: BP 132/83
[2018-12-10] MEDS: POLYETHYLENE GLYCOL 17 GM PKT PO SCH ×2 (09:00→10:33)
[2018-12-10] MEDS: busPIRone HCL 5 MG TAB PO SCH ×2 (10:30→20:19)
[2018-12-10] MEDS: LISINOPRIL 20 MG TAB PO SCH ×2 (10:31→20:19)
[2018-12-10] MEDS: amLODIPine BESYL(*) 5 MG TAB PO SCH (10:31)
[2018-12-10] MEDS: DULoxetine HCL 30 MG CAPCR PO SCH (10:31)
[2018-12-10] MEDS: METOPROLOL SUCC XL 50 MG TABCR 50 MG TAB.ER.24H PO SCH (10:31)
[2018-12-10] MEDS: ENOXAPARIN 40 MG/0.4ML SYR SC SCH (10:32)
[2018-12-10] MEDS: LIDOCAINE 5% PATCH TP SCH (10:33)
[2018-12-10] MEDS: GABAPENTIN 300 MG CAP PO SCH ×2 (10:33→20:19)
[2018-12-10 12:09] VITALS: BP 172/75
[2018-12-10 14:51] VITALS: BP 171/78
--- NOTE | 2018-12-10 15:53 | Hospitalist Progress Note ---
Subjective Progress Notes Subjective The patient continues to have pain in his low back and L rib cage. Physical Exam Vital Signs Date Time Temp Pulse Resp B/P (MAP) Pulse Ox O2 Delivery O2 Flow Rate FiO2 12/10/18 14:51 97.6 77 16 171/78 (109) 90 Nasal Cannula 1.0 Intake and Output 12/10/18 07:01 Intake Total 986 ml Output Total 2800 ml Balance -1814 ml Intake Oral 986 ml Output Urine Total 2800 ml # Voids 2 # Bowel Movements 1 General Appearance: Alert, Awake, No Acute Distress Neuro: No Gross deficits Cardiovascular: Regular Rate and Rhythm Respiratory: Clear to Auscultation GI: Soft and Non-Tender Musculoskeletal: Other (Tender to palpation over his anterolateral rib cage on the left.) Extremities: Warm, Perfused Integumentary: Skin Intact without Lesion / Mass Psych: Appropriate Mood & Affect Result Diagram: 12/08/1852812/08/18528 Assessment and Plan Problems: (1) Compression fracture of L1 lumbar vertebra Status: Acute Assessment & Plan: He appears to have some further acute compression of L1. He has become essentially nonambulatory due to the pain. PT/OT, bracing and pain control. Fentanyl patch and Lortab. Lidoderm patch as well. (2) Abdominal pain Status: Acute Assessment & Plan: Reports this is chronic pain he has had. Watch closely and proceed with further work-up as needed. (3) Depression, endogenous Status: Chronic Assessment & Plan: Continue his usual regimen with Cymbalta and Buspar. (4) Chronic pain syndrome Status: Chronic Assessment & Plan: He has been managed with fentanyl patch 75mcg q72hrs, Lortab for breakthrough pain, and gabapentin. (5) Abnormal CT of the chest Status: Chronic Assessment & Plan: He has been following with Dr. Lau. Repeat CT scan of the chest is planned in near future. (6) Hypertension, benign Onset Date: 03/19/2014 Status: Chronic Assessment & Plan: Monitor BPs. Continue metoprolol, amlodipine, lisinopril with parameters. (7) Systolic murmur Assessment & Plan: He states he has not been advised he had a murmur in the past. Echo shows mild to moderate aortic regurgitation. Time Spent on Plan of Care: < 30 min Exam Sepsis Risk: No Definite Risk Problem Qualifiers (1) Compression fracture of L1 lumbar vertebra: Encounter type: subsequent encounter Fracture healing: with routine healing Qualified Codes: S32.010D - Wedge compression fracture of first lumbar vertebra, subsequent encounter for fracture with routine healing CASTILLO NEVAREZ MD Dec 10, 2018 15:53
[2018-12-10] MEDS: APAP/HYDROCODONE 325/5 TAB PO PRN (18:53)
[2018-12-10 19:08] VITALS: BP 149/75
[2018-12-10] MEDS: PATCH REMOVAL 1 EA TP SCH (20:22)
[2018-12-10] MEDS: MELATONIN 3 MG TAB PO PRN (20:25)
[2018-12-11] MEDS: APAP/HYDROCODONE 325/5 TAB PO PRN ×2 (01:47→07:44)
[2018-12-11 07:07] VITALS: BP 163/80
[2018-12-11] MEDS ORDERED: POTASSIUM CHL 20 MEQ TABCR PO ONE (09:00)
[2018-12-11] MEDS: POLYETHYLENE GLYCOL 17 GM PKT PO SCH (09:25)
[2018-12-11] MEDS: DULoxetine HCL 30 MG CAPCR PO SCH (09:25)
[2018-12-11] MEDS: amLODIPine BESYL(*) 5 MG TAB PO SCH (09:26)
[2018-12-11] MEDS: METOPROLOL SUCC XL 50 MG TABCR 50 MG TAB.ER.24H PO SCH (09:26)
[2018-12-11] MEDS: ENOXAPARIN 40 MG/0.4ML SYR SC SCH (09:26)
[2018-12-11] MEDS: LIDOCAINE 5% PATCH TP SCH (09:27)
[2018-12-11] MEDS: GABAPENTIN 300 MG CAP PO SCH (09:27)
[2018-12-11] MEDS: busPIRone HCL 5 MG TAB PO SCH (09:27)
[2018-12-11] MEDS: LISINOPRIL 20 MG TAB PO SCH (09:27)
--- NOTE | 2018-12-11 09:28 | Transfer Summary (ECF/SWB) ---
Transfer Summary (ECF/B) Problems: (1) Compression fracture of L1 lumbar vertebra Status: Acute Assessment & Plan: He appears to have some further acute compression of L1. He has become essentially nonambulatory due to the pain, but is improving with therapy. PT/OT, bracing and pain control. Fentanyl patch and Lortab. Lidoderm patch as well. He will transfer to [facility] for continued therapy. (2) Abdominal pain Status: Acute Assessment & Plan: Reports this is chronic pain he has had. Watch closely and proceed with further work-up as needed. (3) Depression, endogenous Status: Chronic Assessment & Plan: Continue his usual regimen with Cymbalta and Buspar. (4) Chronic pain syndrome Status: Chronic Assessment & Plan: He has been managed with fentanyl patch 75mcg q72hrs, Lortab for breakthrough pain, and gabapentin. (5) Abnormal CT of the chest Status: Chronic Assessment & Plan: He has been following with Dr. Lau. Repeat CT scan of the chest is planned in near future. (6) Hypertension, benign Status: Chronic Assessment & Plan: Monitor BPs. Continue metoprolol, amlodipine, lisinopril with parameters. (7) Systolic murmur Assessment & Plan: He states he has not been advised he had a murmur in the past. Echo shows mild to moderate aortic regurgitation. Latest Vital Signs Vital Signs Date Time Temp Pulse Resp B/P (MAP) Pulse Ox O2 Delivery O2 Flow Rate FiO2 12/11/18 08:47 91 Room Air 12/11/18 07:07 97.6 55 16 163/80 (107) 1.0 Result Diagram: 12/08/18 0529 12/11/18 0526 Condition: Improved Disposition: SNF/NH Treatment Goals and Plan Patient requires penitentiary and/or skilled rehabilitation with the goal to increase independence with ADL's, functional strength and mobility. Continue and adjust medication regimen. Services Required: PT, OT Copies To 1: DENISSE LAU MD ; Problem Qualifiers (1) Compression fracture of L1 lumbar vertebra: Encounter type: subsequent encounter Fracture healing: with routine healing Qualified Codes: S32.010D - Wedge compression fracture of first lumbar vertebra, subsequent encounter for fracture with routine healing FERNANDA TORRES CERTIFIED PHYSICIAN ASSISTANT Dec 11, 2018 09:28
[2018-12-11] MEDS: IBUPROFEN 600 MG TAB PO PRN (09:37)
[2018-12-11] MEDS ORDERED: PATCH REMOVAL 1 EA TP SCH (10:15)
[2018-12-11 10:55] VITALS: BP 187/77
== END 2018-12-11 10:50 ==
LOC: ER 15:05 → INTOOBSV 18:44 → MED 18:44 → SWB 12-11 10:50
PROVIDERS: ADMIT Internal Medicine; ATTEND Family Medicine
DX: I10 Essential (primary) hypertension (principal); R01.1 Cardiac murmur, unspecified; F32.9 Major depressive disorder, single episode, unspecified; G89.4 Chronic pain syndrome
CPT/HCPCS: 36415; 71045; 74177; 81001; 82550; 83605; 83690; 85025; 93306; 96361; 96372; 96374; 96375; 97162; 97166; 97530; 99284; A9270; C1758; G0378; J1170; J1650; J2405; J3010; J3490; J7030; Q9967; 82040; 82247; 82310; 82374; 82435; 82565; 82947; 84075; 84132; 84155; 84295; 84450; 84460; 84520

== ENCOUNTER → 2018-12-07 | Outpatient (CLI) | payer MEDICARE ==
[2015-08-11 10:16] VITALS: BMI 26.9
== END ==
LOC: AMB 14:21
PROVIDERS: ATTEND Nurse Practitioner
DX: R10.32 Left lower quadrant pain (principal); R11.0 Nausea
CPT/HCPCS: A0425; A0427

== ENCOUNTER 2018-12-11 10:50 | Inpatient (IN) | payer MEDICARE ==
[2015-08-11 10:16] VITALS: Ht 182.9 cm; Wt 78.5 kg
[~2018-12-11] VITALS: Ht 182.9 cm; Wt 78.5 kg
[2018-12-11 10:55] VITALS: BP 187/77
[2018-12-11] MEDS ORDERED: FENTANYL TOP SCH (11:37)
[2018-12-11] MEDS ORDERED: TDSY TOP SCH (11:37)
[2018-12-11] MEDS: PATCH REMOVAL 1 EA TP SCH ×2 (11:37→21:00)
--- NOTE | 2018-12-11 12:01 | NUR ---
Physical Therapy Impression PT eval completed with education on log roll technique and proper fit/adjust of TLSO while seated at EOB. Please refer to other reports for further information. Physical Therapy Goals 1. Pt to be Min/CGA for bed mobility and supine<>sit trnsfrs 2. Pt to be Min/CGA for sit to/from stand transfers 3. Pt to tolerate ambulation with least restrictive device and TLSO x 150' 4. Pt to complete up/down small platform step to simulate threshold to home after ramp. Patient's Goals
[2018-12-11] MEDS: FENTANYL TOP SCH (13:17)
[2018-12-11] MEDS: TDSY TOP SCH (13:17)
--- NOTE | 2018-12-11 14:08 | Consultant Pharmacy Review ---
Inbound Sales Representative Review Medication Review Do All Mecications have a Diag: Yes Beers Criteria Medication 2014 Pain Medications: Ibuprofen (Patient on Ibuprofen 600 mg q8hr prn as well as enoxaparin 40 mg and duloxetine 30 mg. 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 Nonsteroidal Anti-Inflammatory Agents may diminish the antihypertensive effect of Beta-Blockers Duloxetine may enhance the anticoagulant effect of Anticoagulants; watch for risk of bleeding Pneumococcal Vaccine HX Pneumo Vac ([id number]): No (Never) HX Pneumo Vac (Pneumovax): No (Never) AMBER PAREDES V Dec 11, 2018 14:07
[2018-12-11] MEDS: APAP/HYDROCODONE 325/5 TAB PO PRN ×2 (14:46→21:33)
[2018-12-11] MEDS ORDERED: INFLUENZA VIRUS VAC 0.5ML SYR IM ONLY ONE (14:55)
[2018-12-11] MEDS ORDERED: PNEUMOCOC VAC POLY 25MCG/0.5ML IM ONLY ONE (14:55)
--- NOTE | 2018-12-11 15:12 | Medical Nutrition Therapy ---
Nutrition Anthropometrics Height (Inches): 72.00 Height (Calculated Centimeters: 182.574588 Weight (Pounds): 172 Weight (Calculated Kilograms): 78.018 BMI: 23.3 Danilo Nutrition Score: Adequate Danilo Nutrition Risk Score: 19 Dietary Referral Nutrition Risk Factors: Nutrition Risk Comment: Nutritional Diagnosis Nutritional Risk Acuity 3: Fair Appetite Nutritional Risk Acuity 4: Age Related Past Medical History: Dentures, depression, GERD, skin cancer, cholecystectomy, arthritis, back pain, thyroid nodule, tobacco use, abnormal CT of chest, AAA, osteoporosis, chronic pain syndrome, HTN, constipation, macular degeneration, lumbosacral spine surgery, cholecystectomy, endovascular stent graft for AAA Nutritional Acuity: 3-Mild Energy Requirement: 1970 (MSJ) Protein Requirement: 78 (1gm/kg) Fluid Requirement: 1970 (1ml/kamron) Diet Type: Diet as Tolerated CECI/REG Nutrition Intervention: Cont diet as ordered, Encourage intake, HS snack Additional Diet Restrictions: encourage high potassium foods Nutrition Monitoring & Eval Nutrition Goals: Eat 75-100% Meal, Drink > 2 liters/day Nutrition Follow-Up: Fair Intake RD Patient Assessment Time: [address] Assessment Type: RD Assessment Patient Nutrition Acuity: 3-Mild Nutritional Comment: 11/10 Pt admitted s/p compression fx. Pt on Ceci and eating 50-75% of meals. BMI is in desired range. Pt has no reported recent wt loss. Pt did state wt as 181#. K+ was low at 3.3. Will encourage high K+ foods. Will cont to monitor and encourage intake. MARK BACA Dec 11, 2018 15:12
--- NOTE | 2018-12-11 15:21 | OT ECF NOTE ---
Type of Note: Initial Note Primary Medical Diagnosis: Generalized weakness s/p L1 compression fracture. *TLSO donned when OOB* Occupational Therapy Evaluation Date: 12/11/18 SUBJECTIVE: Prior Hospitalization: [facility] 12/07/18-12/11/18 Prior Level of Function: Modified Independent for ADLs. Assist from son for IADLs and occasional LB dressing. Pt was ambulating household distances with a cane prior to admission. Pt reports he had not been out of bed since 11/16/18 due to back pain. Prior Living Status: Single level house Living with family-Son resides with patient and assists with all IADLs and occasional ADLs. Assist by family Community Services: No known needs Home Accessibility: Ramp All needs on one level Tub/shower combination Equipment Owned: Rollator Tub/shower chair Grab bars in bathroom Medical Complications/Past Medical History: Please refer to EMR Psychosocial Support: Supportive children (some locally and some out of town) Pain Scale (0-10): Pt reporting significant pain improvement. Occasional discomfort in lower back and abdomen with functional mobility. No numerical rating provided. OBJECTIVE: Strength: MMT: Right Left Shoulder Flexion WFL WFL Elbow Flexion WFL WFL Wrist Extension WFL WFL Director Of Special Events WFL WFL (5= normal, 4= good, 3= fair, 2= poor, 1= trace) ROM: Both upper extremities, WFL Sensation: No paraesthesia reported Functional Transfer: Assistive Device: Front wheeled walker, Gait belt Transfer Ability: CGA ADL: Upper body dressing: Assistive device: None Upper body dressing ability: Total assistance to don TLSO Lower body dressing: Assistive device: May benefit from LB AE education Lower body dressing ability: Maximum assistance Toileting: Assistive device: Toileting ability: N/T Grooming/hygiene: Assistive device: Grooming ability: N/T Bathing: Assistive device: Bathing ability: N/T Standardized Assessment: Shane Index of Activities of Daily Livin/20 upon initial evaluation (12/11/18). ASSESSMENT: [facility] generalized weakness and decreased balance s/p L1 compression fracture that has limited pt's functional mobility for 2-3 weeks. He will benefit from skilled OT services to improve activity tolerance and optimize independence for ADLs prior to discharge home with assist from family. Problem List/Current Limitations: Pain Decreased activity tolerance Decreased strength Decreased ROM Decreased balance Generalized weakness Short Term Goals: 1) Pt will be SBA toilet task. 2) Pt will be Independent grooming/hygiene. 3) Pt will be SBA shower task seated. 4) Pt will be SBA UB/LB dressing. 5) Pt Shane Index of ADLs score will improve by 2 points. Jail Goals: Return home with services and continued assist from son for ADLs/IADLs Patient Goals: "Be home by " Get moving better. Rehabilitation Prognosis: Good Barriers to Discharge: Pain, Medical history PLAN: The patient will benefit from skilled occupational therapy services 5 times per week for 2 weeks including: Ther ex ADL training Safety training Ther act IADL training Home assessment Transfer training Adaptive equip training Bed mobility Energy conservation Thank you for this referral. If you have any questions, concerns, or comments about this report or plan, please contact me at . Monse Pollack MS, OTR/L Occupational Therapist MAHESH
[2018-12-11 16:00] VITALS: BP 140/70
[2018-12-11] MEDS: MELATONIN 3 MG TAB PO PRN (21:33)
[2018-12-11] MEDS: GABAPENTIN 300 MG CAP PO SCH (21:33)
[2018-12-11] MEDS: LISINOPRIL 20 MG TAB PO SCH (21:33)
[2018-12-11] MEDS: busPIRone HCL 5 MG TAB PO SCH (21:33)
[2018-12-12 07:55] VITALS: BP 158/86
[2018-12-12] MEDS: GABAPENTIN 300 MG CAP PO SCH ×2 (09:00→20:46)
[2018-12-12] MEDS: busPIRone HCL 5 MG TAB PO SCH ×2 (09:01→20:46)
[2018-12-12] MEDS: DULoxetine HCL 30 MG CAPCR PO SCH (09:01)
[2018-12-12] MEDS: POLYETHYLENE GLYCOL 17 GM PKT PO SCH (09:01)
[2018-12-12] MEDS: LIDOCAINE 5% PATCH TP SCH (09:01)
[2018-12-12] MEDS: ENOXAPARIN 40 MG/0.4ML SYR SC SCH (09:02)
[2018-12-12] MEDS: amLODIPine BESYL(*) 5 MG TAB PO SCH (09:08)
[2018-12-12] MEDS: METOPROLOL SUCC XL 50 MG TABCR 50 MG TAB.ER.24H PO SCH (09:08)
[2018-12-12] MEDS: LISINOPRIL 20 MG TAB PO SCH ×2 (09:08→20:46)
[2018-12-12] MEDS: APAP/HYDROCODONE 325/5 TAB PO PRN ×3 (09:14→22:22)
--- NOTE | 2018-12-12 09:28 | NUR ---
back brace pt has been refusing to use the back brace when OOB at times. PT recommends we have pt use the brace when getting up.
--- NOTE | 2018-12-12 11:35 | NUR ---
Occupational Therapy Impression SBA supine to sit. Min A sit<>supine. V/c's for log roll. Mod A to don/doff TLSO. CGA ambulation 2x15ft with RW. SBA with v/c's LB dressing with education for LB AE (prenatal genetic counselor/sock aid). Declined need for further ADLs at this time. SpO2 87% on room air. O2 donned and SpO2 >90% on 1.5L. Continue POC. Occupational Therapy Goals 1) Pt will be SBA toilet task. 2) Pt will be Independent grooming/hygiene. 3) Pt will be SBA shower task seated. 4) Pt will be SBA UB/LB dressing. 5) Pt Shane Index of ADLs score will improve by 2 points. Patient's Goal
--- NOTE | 2018-12-12 11:38 | NUR ---
Physical Therapy Impression Pt address log roll technique x 2 reps with SBA/Modified indep. Pt sat at edge of bed for trng with TLSO and nursing present to ensure carry over of skill and to encourage pt to complete most aspects of brace application as indep as possible. Staff to assist with shoulder straps to prevent twisting or excessive extension to reach them. After brace don/doff x 2 reps, pt then ambulated to/from BR with SBA/CGA and supplemental O2. Pt practiced with use of accounts clerk to pull up pants after sitting to toilet and PT assisted with pericare to prevent twisting. Pt would benefit from more rehab to ensure proper safety skills with back precautions to prevent further injury to L-spine. Physical Therapy Goals 1. Pt to be Min/CGA for bed mobility and supine<>sit trnsfrs 2. Pt to be Min/CGA for sit to/from stand transfers 3. Pt to tolerate ambulation with least restrictive device and TLSO x 150' 4. Pt to complete up/down small platform step to simulate threshold to home after ramp. Patient's Goals
[2018-12-12 16:00] VITALS: BP 164/72
--- NOTE | 2018-12-12 17:22 | PT ECF NOTE ---
Type of Note: Initial Note Primary Medical Diagnosis: Generalized weakness s/p L1 compression fracture. *TLSO donned when OOB* Physical Therapy Evaluation Date: 12/11/18 SUBJECTIVE: Prior Hospitalization: [facility] 12/07/18-12/11/18 Prior Level of Function: Modified Independent for ADLs. Assist from son for IADLs and occasional LB dressing. Pt was ambulating household distances with a cane prior to admission. Pt reports he had not been out of bed since 11/16/18 due to back pain. Prior Living Status: Single level house Living with family-Son resides with patient and assists with all IADLs and occasional ADLs. Assist by family Community Services: No known needs Home Accessibility: Ramp All needs on one level Tub/shower combination Equipment Owned: Cane; Rollator Tub/shower chair Grab bars in bathroom Medical Complications/Past Medical History: Please refer to EMR Psychosocial Support: Supportive children (some locally and some out of town) Pain Scale (0-10): Pt reporting significant pain improvement. Occasional discomfort in lower back and abdomen with functional mobility. No numerical rating provided. OBJECTIVE: Strength: B) LE's WFL overall ROM: (please note any abnormalities) B) LE's WFL overall Sensation: (please note any abnormalities) No paresthesias noted Other Neuro findings: none Bed Mobility: Pt requires VC's and [id number] instruction to complete appropriate log roll technique. Assistive device: Transfers: Supine to/from sit with Min/CGA; Pt declined to complete sit to/from stand during initial eval Assistive Device: Bed rail Gait: Declines at initial eval Assistive device: Stairs: Assistive device: Timed Up and Go (>12 seconds indicated increased risk for falls): Will evaluate within initial 3 days once pain is better managed. 10 meter walk test (0.6m/second cannot function independently): n/a Other Objective Measures: n/a ASSESSMENT: Pt has been fit with TLSO but does not demo carry over of instruction for don/doff of brace when out of bed. Pt would benefit from education and practice regarding importance of brace application to support L1 fracture site and prevent further compromise at this level. Pt would also benefit from basic education regarding log roll technique and habituation with this skill to enhance carry over of this protective strategy into his ADL's in the home environment. Problem List/Current Limitations: Pain with mobility Short Term Goals: 1. Pt to be Min/CGA for bed mobility and supine<>sit trnsfrs 2. Pt to be Min/CGA for sit to/from stand transfers 3. Pt to tolerate ambulation with least restrictive device and TLSO x 150' 4. Pt to complete up/down small platform step to simulate threshold to home after ramp. Train Examiner Goals: Return home with appropriate level of assistance provided by family and [facility] services Patient Goals: Return home by "21 of December" Rehabilitation Prognosis: Good to goals set Barriers for Discharge: Difficulty with carry over of skills and don/doff of brace appropriately PLAN: The patient will benefit from skilled physical therapy services 5 times per week for 2 weeks including: Ther ex, Ther act, Bed mobility, transfers, ADL's, gait and safety Thank you for this referral. If you have any questions, concerns, or comments about this report or plan, please contact me at . Y. Justine Neely, PT, MPT, OMS MTDD
[2018-12-12 20:20] VITALS: BP 160/79
[2018-12-12] MEDS: MELATONIN 3 MG TAB PO PRN (20:46)
[2018-12-12] MEDS: PATCH REMOVAL 1 EA TP SCH (20:46)
[2018-12-13] MEDS: APAP/HYDROCODONE 325/5 TAB PO PRN ×3 (04:24→20:19)
[2018-12-13 07:22] VITALS: BP 188/84
[2018-12-13] MEDS: GABAPENTIN 300 MG CAP PO SCH ×2 (08:29→20:20)
[2018-12-13] MEDS: DULoxetine HCL 30 MG CAPCR PO SCH (08:29)
[2018-12-13] MEDS: LIDOCAINE 5% PATCH TP SCH (08:29)
[2018-12-13] MEDS: LISINOPRIL 20 MG TAB PO SCH ×2 (08:30→20:20)
[2018-12-13] MEDS: IBUPROFEN 600 MG TAB PO PRN (08:30)
[2018-12-13] MEDS: busPIRone HCL 5 MG TAB PO SCH ×2 (08:30→20:19)
[2018-12-13] MEDS: METOPROLOL SUCC XL 50 MG TABCR 50 MG TAB.ER.24H PO SCH (08:30)
[2018-12-13] MEDS: amLODIPine BESYL(*) 5 MG TAB PO SCH (08:30)
[2018-12-13] MEDS: ENOXAPARIN 40 MG/0.4ML SYR SC SCH (08:31)
[2018-12-13] MEDS: POLYETHYLENE GLYCOL 17 GM PKT PO SCH (09:00)
--- NOTE | 2018-12-13 10:20 | NUR ---
Physical Therapy Impression Patient presents in room and is agreeable to therapy. He needed mod A to don brace with max cuing. Patient performed TUG test and required 32 seconds to complete. Patient then instructed in gait training with FWW ~ 65 feet CGA with cuing for posture and step length. Patient needed A for oxygen tank. Patient doffed brace I but needed cuing to keep one side closed. Patient instructed in log roll technique to transfer from sit to supine with min A. Physical Therapy Goals 1. Pt to be Min/CGA for bed mobility and supine<>sit trnsfrs 2. Pt to be Min/CGA for sit to/from stand transfers 3. Pt to tolerate ambulation with least restrictive device and TLSO x 150' 4. Pt to complete up/down small platform step to simulate threshold to home after ramp. Patient's Goals
[2018-12-13 13:18] VITALS: BP 198/85
[2018-12-13 13:50] VITALS: BP 161/76
[2018-12-13] MEDS ORDERED: hydrALAZINE HCL 10 MG TAB PO PRN (14:30)
--- NOTE | 2018-12-13 14:30 | ECF History & Physical ---
Transfer Summary (ECF/B) Problems: (1) Compression fracture of L1 lumbar vertebra Status: Acute Assessment & Plan: He appears to have some further acute compression of L1. He has become essentially nonambulatory due to the pain, but is improving with therapy. PT/OT, bracing and pain control. Fentanyl patch and Lortab. Lidoderm patch as well. He will transfer to [facility] for continued therapy. (2) Abdominal pain Status: Acute Assessment & Plan: Reports this is chronic pain he has had. Watch closely and proceed with further work-up as needed. (3) Depression, endogenous Status: Chronic Assessment & Plan: Continue his usual regimen with Cymbalta and Buspar. (4) Chronic pain syndrome Status: Chronic Assessment & Plan: He has been managed with fentanyl patch 75mcg q72hrs, Lortab for breakthrough pain, and gabapentin. (5) Abnormal CT of the chest Status: Chronic Assessment & Plan: He has been following with Dr. Lau. Repeat CT scan of the chest is planned in near future. (6) Hypertension, benign Status: Chronic Assessment & Plan: Monitor BPs. Continue metoprolol, amlodipine, lisinopril with parameters. (7) Systolic murmur Assessment & Plan: He states he has not been advised he had a murmur in the past. Echo shows mild to moderate aortic regurgitation. Latest Vital Signs Vital Signs Date Time Temp Pulse Resp B/P (MAP) Pulse Ox O2 Delivery O2 Flow Rate FiO2 12/11/18 08:47 91 Room Air 12/11/18 07:07 97.6 55 16 163/80 (107) 1.0 Result Diagram: 12/08/18 0529 12/11/18 0526 Condition: Improved Disposition: SNF/NH Treatment Goals and Plan Patient requires custodial and/or skilled rehabilitation with the goal to increase independence with ADL's, functional strength and mobility. Continue and adjust medication regimen. Services Required: PT, OT Copies To 1: DENISSE LAU MD ; Problem Qualifiers (1) Compression fracture of L1 lumbar vertebra: Encounter type: subsequent encounter Fracture healing: with routine healing Qualified Codes: S32.010D - Wedge compression fracture of first lumbar vertebra, subsequent encounter for fracture with routine healing FERNANDA TORRES Dec 11, 2018 09:28 <Electronically signed by AMY RODRIGUEZ> D/ 7 7 7 ROSHAN/IQRA CC: DENISSE LAU MD
[2018-12-13] MEDS ORDERED: NICOTINE CARTRIDGE 1 EA PO PRN (14:45)
[2018-12-13] MEDS ORDERED: NICOTINE INH SYSTEM 10 MG/INH INH PRN (14:45)
--- NOTE | 2018-12-13 14:55 | Hospitalist Progress Note ---
Physical Exam Vital Signs Date Time Temp Pulse Resp B/P (MAP) Pulse Ox O2 Delivery O2 Flow Rate FiO2 12/13/18 13:50 99.7 64 12 161/76 (104) 90 Room Air 12/13/18 11:11 1.5 Intake and Output 12/13/18 07:01 Intake Total 1060 ml Balance 1060 ml Intake Oral 1060 ml # Voids 5 # Bowel Movements 1 Result Diagram: 12/13/18 0924 Assessment and Plan Problems: (1) Compression fracture of L1 lumbar vertebra Status: Acute Assessment & Plan: He appeared to have some further acute compression of L1. He was essentially nonambulatory due to the pain on admission, but did improve with therapy. PT/OT, bracing and pain control. Fentanyl patch and Lortab. Lidoderm patch as well. He was transfered to [facility] for continued therapy. (2) Abdominal pain Status: Acute Assessment & Plan: Reports this is chronic pain he has had. Watch closely and proceed with further work-up as needed. (3) Depression, endogenous Status: Chronic Assessment & Plan: Continue his usual regimen with Cymbalta and Buspar. (4) Chronic pain syndrome Status: Chronic Assessment & Plan: He has been managed with fentanyl patch 75mcg q72hrs, Lortab for breakthrough pain, and gabapentin. (5) Abnormal CT of the chest Status: Chronic Assessment & Plan: He has been following with Dr. Lau. Repeat CT scan of the chest is planned in near future. (6) Hypertension, benign Onset Date: 03/19/2014 Status: Chronic Assessment & Plan: Monitor BPs. Continue metoprolol, amlodipine, lisinopril with parameters. His BP remains high at times, but can not increase metoprolol due to bradycardia (40s at times). Can not add clonidine for the same reason. He has had significant hyponatremia in the past as well so can not add a diuretic. Will add a prn hydralazine. (7) Systolic murmur Assessment & Plan: He states he has not been advised he had a murmur in the past. On PE he has a systolic murmur but echo shows mild to moderate aortic regurgitation. Time Spent on Plan of Care: < 30 min CASTILLO NEVAREZ MD Dec 13, 2018 14:55
[2018-12-13 15:05] VITALS: BP 155/78
--- NOTE | 2018-12-13 15:21 | NUR ---
Hypertensive Event CONTOUR SANDER reported to me that patient was dizzy/weak/had unsteady balance. Upon assessment, BP was 198/85 with machine, and 192/78 manual, HR 62, Oxygen saturation 92%. Patient reported blurred vision. Dr. Ion Hernandez notified. Instructed to reassess in 30 minutes. In 30 minutes, BP 161/76, temp 99.7. Dr. Ion Hernandez notified. No new orders.
--- NOTE | 2018-12-13 17:18 | SPEECH INITIAL EVALUATION ---
INITIAL SPEECH THERAPY EVALUATION REPORT Cognitive Communication Assessment Patient Name: Josesito Beltran Date of Evaluation: 12/13/2018 Patient : 35 Clinician: Adriana Pollack M.S., CCC-CHRONOMETER ADJUSTER; Evelina Dozier, Market Consultant Clinician Treatment Dx: moderate cognitive linguistic deficit BACKGROUND The patient is an 83-year-old male who presents to the [facility] for further rehabilitation following hospitalization at [facility] with L1 compression fracture. The pt was referred for an ST assessment to analyze cognitive linguistic status secondary to staff concerns re: memory impairment. Primary Medical Dx: Generalized weakness s/p L1 compression fracture Past medical Hx: abdominal pain, depression, HTN, systolic murmur Prior Level of Function: The pt resides with his son. Son offers assistance for some ADLs and all IADLs, including cooking, grocery shopping, driving, financial auditor, and medication management. The pt reports that his son prepares a weekly medication box, but that he is responsible for remembering to take his medications on time. LANGUAGE/COGNITION The [place] Cognitive Assessment (MoCA), Version 7.2 was administered with the following results: - Total Score (TS): (=WNL) 5 points omitted for visuospatial/executive function portion due to severity of visual impairments associated with cataracts. - moderate cognitive linguistic deficits -Cognitive Domains Demonstrating Deficits: attention, memory (immediate, working, and short-term), verbal fluency / thought organization, problem solving -Cognitive Domains Demonstrating Relative Strength: orientation, mental abstraction, item naming, simple executive function skills Pt exhibits moderate cognitive linguistic impairments most notably characterized by deficits in attention, memory, problem solving, and word finding. Etiology is consistent with global, cerebral atrophy per brain MRI results from 2016. Pt exhibited notable difficulty focusing on structured assessment tasks, often requiring repetition of instructions or redirection from conversational tangents. Pt also struggled to retain information both immediately and following a brief delay. Deficits in attention appear to negatively impact retention of novel information, and new learning for appropriate trial and error/problem solving skills. The pt initially exhibited reduced insight into areas of cognitive linguistic impairment prior to initiation of objective assessment; however, the pt ultimately endorsed errors and acknowledged difficulty with attention and short-term memory. Relative areas of strength were noted in orientation to temporal, environmental, and situational concepts including demonstration of comprehension re: medical etiology/pathology. Pt also exhibited basic executive function skills evidenced by attempts to establish a plan and self-monitor behavior. However, organization and sequencing skills were notably lacking. The pt appears to be functioning mildly below baseline from a cognitive- linguistic standpoint. The pt would ultimately like to return to his prior living situation (home with assist from son). Would recommend daily supervision and ongoing ST services at this time, including assistance with all IADLs for safety. Further ST interventions are warranted in a subacute care setting to promote functional cognitive linguistic skills for positive integration within current environment, and for safe and successful transition to discharge location. Due to underlying cognitive linguistic deficits, the patient may exhibit difficulty with the following functional activities: Organizing pill box and remembering to take medications on time Scheduling and attending appointments Managing finances (currently managed by A) Safely preparing meals Foreseeing and avoiding environmental obstacles/hazards Recalling and executing instructions for safety and medical information SPEECH: WFL. VOICE: WFL. DYSPHAGIA: WFL. No complaints. RECOMMENDATIONS 1. ST 3x/wk, 2wks 2. ST at d/c 3. Recommend ongoing family assistance for completion of all IADLs PROGNOSIS: Good. Evolving insight, motivated to participate. PLAN OF CARE Short Term Goals 1. Pt will employ compensatory memory strategies to facilitate recall of functional information (medication administration times, medical or therapeutic appointments) with mod verbal/visual cues to support increased participation in daily routine. Long-Term Goals 1. The patient will demonstrate functional cognitive communication status for safety and maximized independence upon anticipated d/c to prior living environment w/ daily supervision from family. Thank you for this referral. Please call [phone] to contact with any questions or concerns. Adriana Pollack M.S., CCC-CHRONOMETER ADJUSTER Evelina Dozier, Market Consultant Clinician [*] [facility]
--- NOTE | 2018-12-13 17:20 | NUR ---
Cognitive linguistic assessment complete. Please refer to full report for detailed information. Pt presents with moderate deficits most notably characterized by difficulty with attention, memory (immediate, short-term, working), word finding, and problem solving. Recommend ST 3x/wk, 2wks with ongoing assistance for all IADLs, daily supervision, and ST at discharge. PLAN OF CARE Short Term Goals 1. Pt will employ compensatory memory strategies to facilitate recall of functional information (medication administration times, medical or therapeutic appointments) with mod verbal/visual cues to support increased participation in daily routine. Long-Term Goals 1. The patient will demonstrate functional cognitive communication status for safety and maximized independence upon anticipated d/c to prior living environment w/ daily supervision from family.
[2018-12-13] MEDS: PATCH REMOVAL 1 EA TP SCH (20:20)
[2018-12-14] VITALS (7 sets, daily range): BP systolic 132–214; BP diastolic 76–92
[2018-12-14] MEDS: IBUPROFEN 600 MG TAB PO PRN (01:07)
[2018-12-14] MEDS: APAP/HYDROCODONE 325/5 TAB PO PRN ×2 (03:37→19:22)
--- NOTE | 2018-12-14 05:44 | NUR ---
Received call at nurses's station (answered by POWER MARKETER) from resident family. Resident had called family with assistance of POWER MARKETER. Family member (son and [id number]) stated that resident had told them that he didn't feel well and he needed assistance. Resident vitals were immediately taken. BP was found to be 183/86, HR 69, 92% on RA. Placed on 1.5L NC for comfort and gave PRN Hydralazine PO as ordered for SBP over 180. Resident mentation appeared WNL, with appropriate responses to questions and provided accurate narrative of last 24 hours of his care. Will continue to closely monitor his BP with vitals to be taken Q15 minutes until BP returns to WNL for resident.
[2018-12-14] MEDS ORDERED: APAP/HYDROCODONE 325/5 TAB PO ONE (07:45)
[2018-12-14] MEDS: FENTANYL TOP SCH (09:03)
[2018-12-14] MEDS: TDSY TOP SCH (09:03)
[2018-12-14] MEDS: ENOXAPARIN 40 MG/0.4ML SYR SC SCH (09:04)
[2018-12-14] MEDS: LIDOCAINE 5% PATCH TP SCH (09:04)
[2018-12-14] MEDS: POLYETHYLENE GLYCOL 17 GM PKT PO SCH (09:04)
[2018-12-14] MEDS: DULoxetine HCL 30 MG CAPCR PO SCH (09:05)
[2018-12-14] MEDS: amLODIPine BESYL(*) 5 MG TAB PO SCH (09:05)
[2018-12-14] MEDS: LISINOPRIL 20 MG TAB PO SCH ×2 (09:06→20:44)
[2018-12-14] MEDS: GABAPENTIN 300 MG CAP PO SCH ×2 (09:06→20:43)
[2018-12-14] MEDS: busPIRone HCL 5 MG TAB PO SCH ×2 (09:06→20:43)
[2018-12-14] MEDS: METOPROLOL SUCC XL 50 MG TABCR 50 MG TAB.ER.24H PO SCH (09:06)
[2018-12-14] MEDS: PATCH REMOVAL 1 EA TP SCH ×2 (11:06→20:50)
--- NOTE | 2018-12-14 11:09 | NUR ---
Pt's pain and BP This morning at approximately 0730, pt called and OC Bell, responded. Ray then reported to me that patient c/o abdominal pain. I had her take a set of vitals and found that BP 214/92, c/o pain he rated an 8 on 0-10 scale. Since just had Hydralazine at 0538 for elevated BP and since he was due to have new Fentanyl patches placed today, this RN notified Dr. Festus Hernandez and received a one-time order for another tab of Lortab (it had been 4 hours since his last Lortab, which was scheduled for q6 hrs PRN). Then, when this RN gave him his a.m. meds, it was discovered that there were no Fentanyl patches on his left shoulder as was documented when last patches were placed by CLAIRE RN. Patient denied knowing where they went. When this RN placed the new patches, I also covered them with some opsite to help keep them in place. We have wanted to give patient a shower, at which time we could look through his bedding more carefully to see if we can find the old patches, but at this time he has refused to get out of bed and refused to work with PT. His current VS: 156/84, P72, R17, Sats 95% on O2 at 1.5LPM per NC, rates pain a 3. Will continue to monitor.
--- NOTE | 2018-12-14 12:31 | NUR ---
Occupational Therapy Impression Pt alert and agreeable to OT tx. Pt c/o of left side pain with deep breaths and mobility. Increased discomfort seated EOB, pt reporting relief in supine. Agreeable to sit up in chair for lunch with encouragement. SBA with v/c's bed mobility. V/c's for use of sock aid, no carryover. CGA stand pivot with RW bed<>chair. Continue POC. Occupational Therapy Goals 1) Pt will be SBA toilet task. 2) Pt will be Independent grooming/hygiene. 3) Pt will be SBA shower task seated. 4) Pt will be SBA UB/LB dressing. 5) Pt Shane Index of ADLs score will improve by 2 points. Patient's Goal
--- NOTE | 2018-12-14 12:33 | NUR ---
Occupational Therapy Impression Pt alert and agreeable to OT tx. Pt c/o of left side pain with deep breaths and mobility. Increased discomfort seated EOB, pt reporting relief in supine. Agreeable to sit up in chair for lunch with encouragement. SBA with v/c's bed mobility. V/c's for use of sock aid, no carryover. CGA stand pivot with RW bed<>chair. Declined further ADLs. Continue POC. Occupational Therapy Goals 1) Pt will be SBA toilet task. 2) Pt will be Independent grooming/hygiene. 3) Pt will be SBA shower task seated. 4) Pt will be SBA UB/LB dressing. 5) Pt Shane Index of ADLs score will improve by 2 points. Patient's Goal
--- NOTE | 2018-12-14 12:53 | NUR ---
Physical Therapy Impression Despite continued inguinal/abdominal pain, Pt demonstrated improved endurance and tolerance to ambulation. Pt required CGAx2 and use of RW for sit<>stand xfers. When transferring out of reclining chair, Pt's feet began slipping forward requiring both feet to be blocked by PT. Slippage could be due to slick floor, nursing notified. Pt ambulated 85 ft with CGAx1, RW, and O2. Pt had one incidence of sharp back pain, which seemed to resolve after a standing break. Pt began to complain of lightheadedness, SpO2 at >90% and BP measured sitting in bed at 171/83. Lightheadedness resolved after sitting EOB. Sit to supine transfer required MinAx2 to lift feet into bed and verbal cues to perform log roll technique. Pt was left in bed with call light in reach and all needs met. Pt would benefit from continued skilled PT care to continue to make improvements with strength/endurance to allow for safe independent ambulation. Physical Therapy Goals 1. Pt to be Min/CGA for bed mobility and supine<>sit trnsfrs 2. Pt to be Min/CGA for sit to/from stand transfers 3. Pt to tolerate ambulation with least restrictive device and TLSO x 150' 4. Pt to complete up/down small platform step to simulate threshold to home after ramp. Patient's Goals
--- NOTE | 2018-12-14 14:10 | NUR ---
Unable to find old Fentanyl patches This RN and OC Bell, went through patient's linens once we got him up to recliner for lunch. We could not find the Fentanyl patches placed 12/11/18 in the linens or on the floor. We changed his linens; we will continue to monitor placement of his current Fentanyl patches.
--- NOTE | 2018-12-14 15:06 | NUR ---
This Physical Therapist or Medical Director Occupational Health was present for the entire physical therapy session directing the services, making the skilled judgement, and was not engaged in treating another patient or doing another task at the same time as the treatment session. Addendum: 12/14/18 at 1506 by ADEEL RODGERS PT Amended: Links added.
[2018-12-15] MEDS: APAP/HYDROCODONE 325/5 TAB PO PRN ×2 (06:27→13:07)
[2018-12-15 07:25] VITALS: BP 122/70
--- NOTE | 2018-12-15 08:38 | Medical Nutrition Therapy ---
Nutrition Anthropometrics Height (Inches): 72.00 Height (Calculated Centimeters: 182.807338 Weight (Pounds): 172 Weight (Calculated Kilograms): 78.018 BMI: 23.3 Danilo Nutrition Score: Probably Inadequate Danilo Nutrition Risk Score: 17 Dietary Referral Nutrition Risk Factors: Nutrition Risk Comment: Nutritional Diagnosis Nutritional Risk Acuity 3: Fair Appetite Nutritional Risk Acuity 4: Age Related Past Medical History: Dentures, depression, GERD, skin cancer, cholecystectomy, arthritis, back pain, thyroid nodule, tobacco use, abnormal CT of chest, AAA, osteoporosis, chronic pain syndrome, HTN, constipation, macular degeneration, lumbosacral spine surgery, cholecystectomy, endovascular stent graft for AAA Nutritional Acuity: 3-Mild Energy Requirement: 1970 (MSJ) Protein Requirement: 78 (1gm/kg) Fluid Requirement: 1970 (1ml/kamron) Diet Type: Diet as Tolerated CECI/REG Nutrition Intervention: Cont diet as ordered, Encourage intake, HS snack Additional Diet Restrictions: encourage high potassium foods Diet Comment To RSA: OFFER NUTR SUPPLEMENTS Nutrition Monitoring & Eval Nutrition Goals: Eat 75-100% Meal Nutrition Follow-Up: Fair Intake RD Patient Assessment Time: [address] Assessment Type: RD Re-Assessment Patient Nutrition Acuity: 3-Mild Follow Up Date: Dec 19, 2018 Nutritional Comment: 11/10 Pt admitted s/p compression fx. Pt on Ceci and eating 50-75% of meals. BMI is in desired range. Pt has no reported recent wt loss. Pt did state wt as 181#. K+ was low at 3.3. Will encourage high K+ foods. Will cont to monitor and encourage intake. JOANNA 12/15 Pt cont on regular diet, intake average 43% of small to regular portions. Will offer nutr supplemnts to increase kcal and protein intake. K+ at 3.5 is now WNR. No new wt. Pt was evaluated by SPL with no dyspagia issues reported. Will cont to monitor and encourage intake. MARK BACA Dec 15, 2018 08:38
[2018-12-15] MEDS: METOPROLOL SUCC XL 50 MG TABCR 50 MG TAB.ER.24H PO SCH (08:58)
[2018-12-15] MEDS: DULoxetine HCL 30 MG CAPCR PO SCH (08:58)
[2018-12-15] MEDS: ENOXAPARIN 40 MG/0.4ML SYR SC SCH (08:58)
[2018-12-15] MEDS: GABAPENTIN 300 MG CAP PO SCH ×2 (08:59→20:34)
[2018-12-15] MEDS: busPIRone HCL 5 MG TAB PO SCH ×2 (08:59→20:34)
[2018-12-15] MEDS: LIDOCAINE 5% PATCH TP SCH (08:59)
[2018-12-15] MEDS: POLYETHYLENE GLYCOL 17 GM PKT PO SCH (09:00)
[2018-12-15] MEDS: LISINOPRIL 20 MG TAB PO SCH ×3 (09:00→20:35)
[2018-12-15] MEDS: amLODIPine BESYL(*) 5 MG TAB PO SCH (09:00)
[2018-12-15] MEDS: PATCH REMOVAL 1 EA TP SCH (09:14)
--- NOTE | 2018-12-15 09:39 | NUR ---
ST Impression Pt seen at the bedside to address cognitive linguistic deficits, with emphasis placed on impairments in short-term memory and functional problem solving skills. Pt utilized association, repetition, and visual aides to support recall of medication information (purpose, administration time) with max graded to min assist. Pt also independently generated solutions to hypothetical problem scenarios r/t medication management. Although responses were logical, solutions did not consistently reflect consideration of the pt's specific physical difficulties (e.g., visual impairment, ambulation difficulties). Performance reflects mildly reduced insight into functional deficits and elevated need for assistance from family members for IADL completion. Will continue to address. STG 1: Pt will employ compensatory memory strategies to facilitate recall of functional information (medication administration times, medical or therapeutic appointments) with mod verbal/visual cues to support increased participation in daily routine.
--- NOTE | 2018-12-15 10:42 | NUR ---
Occupational Therapy Impression Attempted OT tx. Pt supine in bed. Reporting nausea and dizziness. Nursing informed and assessed pt, all vital signs WNL. Pt agreeable to attempt tx, upon sitting EOB pt c/o of increased pain in left side and immediately returned to supine. Pt reporting increased comfort, declined needs at this time. Will follow and complete tx as able. Occupational Therapy Goals 1) Pt will be SBA toilet task. 2) Pt will be Independent grooming/hygiene. 3) Pt will be SBA shower task seated. 4) Pt will be SBA UB/LB dressing. 5) Pt Shane Index of ADLs score will improve by 2 points. Patient's Goal
--- NOTE | 2018-12-15 14:01 | RADIOLOGY IMAGING REPORT ---
FACILITY: [facility] PATIENT NAME: Josesito Beltran : 1935 MR: [id number] V: [id number] EXAM DATE: ORDERING PHYSICIAN: FERNANDA TORRES TECHNOLOGIST: [place] [facility] [place] [place]osesito Bel[place]an : 1935 Visit/Account:[id number] Date of Sevice: 12/15/2018 Exam type: KUB SINGLE VIEW ABDOMEN History: Left lower abdomen pain since end of October, nausea and vomiting two days ago Comparison: CT abdomen pelvis December 07, 2018. Findings: Copious amounts of air are seen throughout the large and small bowel although do not appear grossly d ilated. This may be related to an ileus. There is an aorto biiliac stent graft in place. Surgical clips are seen in the right upper quadrant and mid abdomen. There is no gross evidence organomegaly. Spondylotic changes of the lumbar spine are present. IMPRESSION: 1. Copious amounts of air seen throughout the large and small bowel although does not appear to be gr ossly dilated. This may be related to an ileus. Clinical correlation needed Report Dictated By: Ronna Polo MD at 12/15/2018 1:53 PM Report E-Signed By: Ronna Polo MD at 12/15/2018 1:55 PM WSN:[email or web address]
[2018-12-15] MEDS ORDERED: PROMETHAZINE 25 MG/ML 1 ML AMP IVP PRN (14:10)
--- NOTE | 2018-12-15 14:19 | Miscellaneous Provider Note ---
Miscellaneous Provider Note Note Patient has complaints of nausea, abdominal pain (left upper and lower quadrants), decreased bowel sounds. There is inconsistency with reports of bowel movements, nursing staff reports probable constipation, while he feels he has diarrhea. He has decreased appetite. He did get KUB, which shows probable ileus. He was placed NPO, with ice chips only. He will be given IV fluids, antiemetics, and will try to limit use of narcotics. He will get repeat KUB tomorrow morning. FERNANDA TORRES SAMPLE CASE PORTER Dec 15, 2018 14:19
--- NOTE | 2018-12-15 14:30 | NUR ---
Daughter Freda notified of ileus and treatment plan.
--- NOTE | 2018-12-15 15:10 | NUR ---
This Physical Therapist or Salt Cutter was present for the entire physical therapy session directing the services, making the skilled judgement, and was not engaged in treating another patient or doing another task at the same time as the treatment session. Addendum: 12/15/18 at 1510 by ARCHIE MUSA PT Amended: Links added.
--- NOTE | 2018-12-15 15:11 | NUR ---
Physical Therapy Impression Pt with limited ambulation due to increased abdominal pain. Pt able to transfer from supine to sitting EOB with SBA and correct log roll technique. On return to bed, Pt required Meche for sit to supine transfer, primarily due to pain. Pt transfered sit<>stand with CGAx1 and use of RW. Pt had one incidence of losing balance upon standing from toilet, due to abdominal pain. Balance maintained via gait belt by PT. Pt ambulated 25 ft from EOB to/from bathroom. Pt took several standing rests due to "shooting pain". Pt refused further ambulation due to pain. Pt requested therex to perform in bed. Instructed on supine therex: ankle pumps, heel slides, SLR, and hip abd. Pt instructed on trying to perform a few exercises every hour. Pt left supine in bed with all needs met and call light in reach. Pt would benefit from further skilled PT care to continue to build strength/endurance to ensure safe ambulation. Physical Therapy Goals 1. Pt to be Min/CGA for bed mobility and supine<>sit trnsfrs 2. Pt to be Min/CGA for sit to/from stand transfers 3. Pt to tolerate ambulation with least restrictive device and TLSO x 150' 4. Pt to complete up/down small platform step to simulate threshold to home after ramp. Patient's Goals
[2018-12-15 15:15] VITALS: BP 114/71
[2018-12-15] MEDS: NS(*) 0.9% 1000 ML BAG 1,000 ML IV PRN (16:00)
[2018-12-16] MEDS: NS(*) 0.9% 1000 ML BAG 1,000 ML IV PRN (01:21)
[2018-12-16 06:24] LABS: PLATELET COUNT, AUTOMATED 201 K/uL (150-450)
--- NOTE | 2018-12-16 06:43 | RADIOLOGY IMAGING REPORT ---
FACILITY: [facility] PATIENT NAME: Josesito Beltran : 1935 MR: [id number] V: [id number] EXAM DATE: [id number] ORDERING PHYSICIAN: FERNANDA TORRES TECHNOLOGIST: Location: [facility] Patient: Josesito Beltran : 1935 Visit/Account:[id number] Date of Sevice: 12/16/2018 Exam type: KUB SINGLE VIEW ABDOMEN History: Ileus Comparison: 12/15/2018. Findings: The amount of air in the colon and small bowel has diminished likely resolving ileus. No free air or pneumatosis. Metallic aortobiiliac stent is once again noted. The osseous structures demonstrate a scoliosis and compression deformities in the lumbar spine. IMPRESSION: 1. Improving bowel gas pattern. The distention of the small large bowel has diminished from prior exa mination likely representing a resolving ileus. Report Dictated By: Bobby Jones MD at 12/16/2018 6:33 AM Report E-Signed By: Bobby Jones MD at 12/16/2018 6:35 AM WSN:[id number]
[2018-12-16 07:35] VITALS: BP 144/82
[2018-12-16] MEDS: GABAPENTIN 300 MG CAP PO SCH ×2 (09:43→20:34)
[2018-12-16] MEDS: LIDOCAINE 5% PATCH TP SCH (09:43)
[2018-12-16] MEDS: METOPROLOL SUCC XL 50 MG TABCR 50 MG TAB.ER.24H PO SCH (09:43)
[2018-12-16] MEDS: POLYETHYLENE GLYCOL 17 GM PKT PO SCH (09:43)
[2018-12-16] MEDS: DULoxetine HCL 30 MG CAPCR PO SCH (09:44)
[2018-12-16] MEDS: amLODIPine BESYL(*) 5 MG TAB PO SCH (09:44)
[2018-12-16] MEDS: LISINOPRIL 20 MG TAB PO SCH ×2 (09:44→20:34)
[2018-12-16] MEDS: busPIRone HCL 5 MG TAB PO SCH ×2 (09:44→20:33)
[2018-12-16] MEDS: ENOXAPARIN 40 MG/0.4ML SYR SC SCH (09:44)
[2018-12-16 09:48] VITALS: BP 159/65
[2018-12-16] MEDS: APAP/HYDROCODONE 325/5 TAB PO PRN (09:58)
--- NOTE | 2018-12-16 12:14 | NUR ---
Fentanyl Patched Intact Checked at 0750 on 12/16. Fentanyl patch is intact under OpSite.
[2018-12-16 16:11] VITALS: BP 120/0
[2018-12-16] MEDS: DOCUSATE SODIUM 100 MG CAP PO SCH (20:23)
[2018-12-16 20:31] VITALS: BP 122/64
[2018-12-16] MEDS: PATCH REMOVAL 1 EA TP SCH (20:34)
[2018-12-17] MEDS: APAP/HYDROCODONE 325/5 TAB PO PRN ×3 (05:30→20:48)
[2018-12-17 07:32] VITALS: BP 147/73
[2018-12-17] MEDS: LIDOCAINE 5% PATCH TP SCH (08:48)
[2018-12-17] MEDS: FENTANYL TOP SCH (08:51)
[2018-12-17] MEDS: TDSY TOP SCH (08:51)
[2018-12-17] MEDS: GABAPENTIN 300 MG CAP PO SCH ×2 (08:51→20:47)
[2018-12-17] MEDS: PATCH REMOVAL 1 EA TP SCH ×2 (08:51→20:50)
[2018-12-17] MEDS: DOCUSATE SODIUM 100 MG CAP PO SCH ×2 (08:51→20:50)
[2018-12-17] MEDS: METOPROLOL SUCC XL 50 MG TABCR 50 MG TAB.ER.24H PO SCH (08:52)
[2018-12-17] MEDS: DULoxetine HCL 30 MG CAPCR PO SCH (08:52)
[2018-12-17] MEDS: LISINOPRIL 20 MG TAB PO SCH ×2 (08:52→20:48)
[2018-12-17] MEDS: busPIRone HCL 5 MG TAB PO SCH ×2 (08:53→20:48)
[2018-12-17] MEDS: amLODIPine BESYL(*) 5 MG TAB PO SCH (08:53)
[2018-12-17] MEDS: ENOXAPARIN 40 MG/0.4ML SYR SC SCH (08:54)
[2018-12-17] MEDS: POLYETHYLENE GLYCOL 17 GM PKT PO SCH (08:54)
[2018-12-17 19:40] VITALS: BP 140/77
[2018-12-17] MEDS: MELATONIN 3 MG TAB PO PRN (20:47)
[2018-12-17] MEDS ORDERED: NS(*) 0.9% 1000 ML BAG 0 ML ONE (23:29)
--- NOTE | 2018-12-18 00:29 | NUR ---
Accidental override in pyxis for 1000ml NS bag, non admin to patient, JAVIER HUTCHINSON
[2018-12-18 08:06] VITALS: BP 137/65
[2018-12-18] MEDS: LISINOPRIL 20 MG TAB PO SCH ×2 (08:49→21:10)
[2018-12-18] MEDS: ENOXAPARIN 40 MG/0.4ML SYR SC SCH (08:49)
[2018-12-18] MEDS: LIDOCAINE 5% PATCH TP SCH (08:49)
[2018-12-18] MEDS: GABAPENTIN 300 MG CAP PO SCH ×2 (08:49→21:08)
[2018-12-18] MEDS: POLYETHYLENE GLYCOL 17 GM PKT PO SCH ×2 (08:49→09:00)
[2018-12-18] MEDS: METOPROLOL SUCC XL 50 MG TABCR 50 MG TAB.ER.24H PO SCH (08:50)
[2018-12-18] MEDS: busPIRone HCL 5 MG TAB PO SCH ×2 (08:50→21:08)
[2018-12-18] MEDS: amLODIPine BESYL(*) 5 MG TAB PO SCH (08:50)
[2018-12-18] MEDS: DOCUSATE SODIUM 100 MG CAP PO SCH ×2 (08:51→21:08)
[2018-12-18] MEDS: DULoxetine HCL 30 MG CAPCR PO SCH (08:51)
--- NOTE | 2018-12-18 11:00 | NUR ---
5-day MDS completed with pt. C: 13, D: 01, E: no concerns, Q: pt plans to DC to community, no referrals made yet, but may be needed. SW will continue to follow for DC needs.
[2018-12-18] MEDS: APAP/HYDROCODONE 325/5 TAB PO PRN (11:34)
--- NOTE | 2018-12-18 15:01 | NUR ---
Occupational Therapy Impression SBA bed mobility in/out. Minimal to no recall of log roll. SBA ambulation [id number]. Occasional cues for management of O2 tubing. Set-up UB dressing, Min A donning/doffing TLSO. SBA LB dressing. Declined shower. Agreeable to bed bath with wipes. Pt completing bed bath with wipes seated/standing with SBA. CGA tub transfer with use of grab bar. Continue POC. Occupational Therapy Goals 1) Pt will be SBA toilet task. 2) Pt will be Independent grooming/hygiene. 3) Pt will be SBA shower task seated. 4) Pt will be SBA UB/LB dressing. 5) Pt Shane Index of ADLs score will improve by 2 points. Patient's Goal
[2018-12-18 15:09] VITALS: BP 103/56
--- NOTE | 2018-12-18 15:24 | Medical Nutrition Therapy ---
Nutrition Anthropometrics Height (Inches): 72.00 Height (Calculated Centimeters: 182.640620 Weight (Pounds): 172 Weight (Calculated Kilograms): 78.018 BMI: 23.3 Danilo Nutrition Score: Probably Inadequate Danilo Nutrition Risk Score: 17 Dietary Referral Nutrition Risk Factors: Nutrition Risk Comment: Nutritional Diagnosis Nutritional Risk Acuity 3: Fair Appetite Nutritional Risk Acuity 4: Age Related Past Medical History: Dentures, depression, GERD, skin cancer, cholecystectomy, arthritis, back pain, thyroid nodule, tobacco use, abnormal CT of chest, AAA, osteoporosis, chronic pain syndrome, HTN, constipation, macular degeneration, lumbosacral spine surgery, cholecystectomy, endovascular stent graft for AAA Nutritional Acuity: 3-Mild Energy Requirement: 1970 (MSJ) Protein Requirement: 78 (1gm/kg) Fluid Requirement: 1970 (1ml/kamron) Diet Type: Diet as Tolerated CECI/REG Nutrition Intervention: Cont diet as ordered, Encourage intake, HS snack Diet Comment To RSA: OFFER NUTR SUPPLEMENTS Nutrition Monitoring & Eval Nutrition Goals: Eat 75-100% Meal, Drink > 1500 cc/day Nutrition Follow-Up: Fair Intake RD Patient Assessment Time: [address] Assessment Type: RD Re-Assessment Patient Nutrition Acuity: 3-Mild Follow Up Date: Dec 26, 2018 Nutritional Comment: 11/10 Pt admitted s/p compression fx. Pt on Ceci and eating 50-75% of meals. BMI is in desired range. Pt has no reported recent wt loss. Pt did state wt as 181#. K+ was low at 3.3. Will encourage high K+ foods. Will cont to monitor and encourage intake. JOANNA 12/15 Pt cont on regular diet, intake average 43% of small to regular portions. Will offer nutr supplemnts to increase kcal and protein intake. K+ at 3.5 is now WNR. No new wt. Pt was evaluated by SPL with no dyspagia issues reported. Will cont to monitor and encourage intake. BK 12/18 Pt cont CECI. Intake avergae 58% of small to regular potions. Pt had reported decreased appetite with nausea and abd pain . Alb 3.2, K+ 4. No new wt. Will cont to monitor and encourage intake MARK BACA Dec 18, 2018 15:24
--- NOTE | 2018-12-18 15:41 | NUR ---
Physical Therapy Impression Pt demonstrating signficantly improved tolerance to mobility. Pt with reduced abominal pain, which could contribute to improved ambulation. Pt ambulated 450 ft with RW, O2 and SBA. Pt did not require any breaks, and had no instances of pain. Pt required SBA and RW for sit<>stand transfers. Pt performed 5x sit<>stand without difficulty. Pt performed sit to supine transfer with SBA. Pt requires verbal cues to perform log roll. Pt would benefit from further skilled PT care to continue progress made in ambulation and educate on safe stair negotiation. Physical Therapy Goals 1. Pt to be Min/CGA for bed mobility and supine<>sit trnsfrs 2. Pt to be Min/CGA for sit to/from stand transfers 3. Pt to tolerate ambulation with least restrictive device and TLSO x 150' 4. Pt to complete up/down small platform step to simulate threshold to home after ramp. Patient's Goals
--- NOTE | 2018-12-18 15:42 | NUR ---
This Physical Therapist or Can Handler was present for the entire physical therapy session directing the services, making the skilled judgement, and was not engaged in treating another patient or doing another task at the same time as the treatment session. Addendum: 12/18/18 at 1542 by ARCHIE MUSA PT Amended: Links added.
[2018-12-18] MEDS: PATCH REMOVAL 1 EA TP SCH (21:00)
[2018-12-18] MEDS: MELATONIN 3 MG TAB PO PRN (21:08)
[2018-12-18 21:11] VITALS: BP 143/69
[2018-12-19 07:26] VITALS: BP 151/70
[2018-12-19] MEDS: APAP/HYDROCODONE 325/5 TAB PO PRN ×3 (07:30→21:08)
[2018-12-19] MEDS: LIDOCAINE 5% PATCH TP SCH (09:09)
[2018-12-19] MEDS: POLYETHYLENE GLYCOL 17 GM PKT PO SCH (09:09)
[2018-12-19] MEDS: DULoxetine HCL 30 MG CAPCR PO SCH (09:10)
[2018-12-19] MEDS: amLODIPine BESYL(*) 5 MG TAB PO SCH (09:10)
[2018-12-19] MEDS: GABAPENTIN 300 MG CAP PO SCH ×2 (09:10→21:08)
[2018-12-19] MEDS: ENOXAPARIN 40 MG/0.4ML SYR SC SCH (09:10)
[2018-12-19] MEDS: DOCUSATE SODIUM 100 MG CAP PO SCH ×2 (09:10→21:08)
[2018-12-19] MEDS: METOPROLOL SUCC XL 50 MG TABCR 50 MG TAB.ER.24H PO SCH (09:10)
[2018-12-19] MEDS: busPIRone HCL 5 MG TAB PO SCH ×2 (09:10→21:08)
[2018-12-19] MEDS: LISINOPRIL 20 MG TAB PO SCH ×2 (09:11→21:08)
--- NOTE | 2018-12-19 09:24 | NUR ---
ST Impression Pt demonstrating increased insight into functional deficits, endorsing difficulty with memory, safety awareness, attention, and processing. Pt also acknowledging elevated need for assistance from family members for IADL completion. Pt participated in short-term memory tasks, utilizing internal (association, repetition, verbal description) and external (visual aides, alarm) memory strategies to support recall of medication information (purpose, administration time). Pt required mod graded to min assist for accurate recall. Discussed d/c recommendations, including benefit of receiving ongoing ST and initial provision of 24/7 care in home environment. Pt agreeable. Will cont POC. STG 1: Pt will employ compensatory memory strategies to facilitate recall of functional information (medication administration times, medical or therapeutic appointments) with mod verbal/visual cues to support increased participation in daily routine.
--- NOTE | 2018-12-19 10:37 | NUR ---
Fentanyl Patch Intact Visualized fentanyl patch at 0730; it was intact under [facility].
--- NOTE | 2018-12-19 10:51 | NUR ---
Physical Therapy Impression Patient is I with transfer from supine to sit but needed cuing to adhere to back precautions to log roll and not twist. Patient transferred from bed to standing mod I. Patient instructed in gait training with 4WW. Patient ambulated ~640 feet with a seated rest break in gym to perform platform step and STS transfers. Patient was SBA with cuing to lock brakes with transfers. Patient had step through gait and good posture and tahir was WNL. Patient performed platform step x 2 reps with first rep requiring min A to help with walker and second rep was CGA. Demonstrated to patient first and then he was able to return demo. On second rep patient demonstrated good safety awareness and proper technique. Patient was able to sharmaine brace with no cuing but needed assistance to grab the upper buckle posteriorly as it was hard to reach. Patient was able to doff brace I. Patient demonstrated good technique with log roll getting back into bed without twisting his back. Physical Therapy Goals 1. Pt to be Min/CGA for bed mobility and supine<>sit trnsfrs 2. Pt to be Min/CGA for sit to/from stand transfers 3. Pt to tolerate ambulation with least restrictive device and TLSO x 150' 4. Pt to complete up/down small platform step to simulate threshold to home after ramp. Patient's Goals
[2018-12-19] MEDS: PATCH REMOVAL 1 EA TP SCH (21:00)
[2018-12-19 21:44] VITALS: BP 142/78
[2018-12-20 07:05] VITALS: BP 150/81
[2018-12-20] MEDS: APAP/HYDROCODONE 325/5 TAB PO PRN (07:35)
--- NOTE | 2018-12-20 08:07 | NUR ---
DC MDS completed with pt. C: 15, D: 01, E: no concerns, Q: pt plans to DC to community, referral made for [facility] at [place]. SW will continue to follow for any additional DC needs.
[2018-12-20] MEDS: POLYETHYLENE GLYCOL 17 GM PKT PO SCH (09:00)
[2018-12-20] MEDS: PATCH REMOVAL 1 EA TP SCH (09:00)
[2018-12-20] MEDS: DULoxetine HCL 30 MG CAPCR PO SCH (09:36)
[2018-12-20] MEDS: ENOXAPARIN 40 MG/0.4ML SYR SC SCH (09:36)
[2018-12-20] MEDS: DOCUSATE SODIUM 100 MG CAP PO SCH (09:36)
[2018-12-20] MEDS: LIDOCAINE 5% PATCH TP SCH (09:36)
[2018-12-20] MEDS: METOPROLOL SUCC XL 50 MG TABCR 50 MG TAB.ER.24H PO SCH (09:36)
[2018-12-20] MEDS: amLODIPine BESYL(*) 5 MG TAB PO SCH (09:37)
[2018-12-20] MEDS: busPIRone HCL 5 MG TAB PO SCH (09:37)
[2018-12-20] MEDS: TDSY TOP SCH (09:37)
[2018-12-20] MEDS: GABAPENTIN 300 MG CAP PO SCH (09:37)
[2018-12-20] MEDS: LISINOPRIL 20 MG TAB PO SCH (09:37)
[2018-12-20] MEDS: FENTANYL TOP SCH (09:37)
--- NOTE | 2018-12-20 11:51 | NUR ---
ST Impression Pt recalled functional information r/t medication management (administration times, purpose for medication regimen, strategies to support consistent administration) with min cues for categorization and association strategies. Pt also independently provided a verbal summary of possible challenges associated with medication management in home environment. Continues to exhibit heightened insight into functional deficits, endorsing difficulty with memory, safety awareness, attention, and info processing. Subacute rehab goals have been met. Continue to recommend ST for safety, functional carryover, and transition of learned skills into home environment. Pt will also continue to benefit from initialprovision of 10/01 supervision and assistance with all IADLs for optimized safety at discharge. STG 1: Pt will employ compensatory memory strategies to facilitate recall of functional information (medication administration times, medical or therapeutic appointments) with mod verbal/visual cues to support increased participation in daily routine. MET 12/20
--- NOTE | 2018-12-20 14:52 | Hospitalist Depart ---
Discharge Summary Reason for Hosp/Final Diag: (1) Compression fracture of L1 lumbar vertebra Status: Acute Hospital Course & Plan: He appeared to have some further acute compression of L1. He had an old injury to L1 as well. He was essentially nonambulatory due to the pain on admission, but did improve with therapy, PT/OT, bracing and pain control. Fentanyl patch and Lortab were continued. His Lortab was increased from Q 8 hours (chronically) to q 6 hours. Lidoderm patch was placed as well. He was transfered to [facility] for continued therapy and improved. Per the pharmacy records, it appears the patient filled his Lortab and Fentanyl patch RXs on November 23. He was at [facility] for 13 days so even with the increased Lortab dosage from q 8 hours to q 6 hours, he should have 12 days of Lortab and 16 days of Fentanyl remaining at home. Will not refill at discharge. (2) Abdominal pain Status: Acute Hospital Course & Plan: The patient reported that he has chronic abdominal pain. Watch closely. (3) Depression, endogenous Status: Chronic Hospital Course & Plan: He was continued on his usual regimen with Cymbalta and Buspar. (4) Chronic pain syndrome Status: Chronic Hospital Course & Plan: He was managed with fentanyl patch 75mcg q72hrs, Lortab for breakthrough pain, and gabapentin. See above. (5) Abnormal CT of the chest Status: Chronic Hospital Course & Plan: He has been following with Dr. Lau. Repeat CT scan of the chest is planned in near future. (6) Hypertension, benign Onset Date: 03/19/2014 Status: Chronic Hospital Course & Plan: Monitor BPs. Continue metoprolol, amlodipine, lisinopril with parameters. His BP remains high at times, but can not increase metoprolol due to bradycardia (40s at times). Can not add clonidine for the same reason. He has had significant hyponatremia in the past as well so can not add a diuretic. Prn hydralazine was added. He will need to follow up with Dr. Lau after discharge. (7) Systolic murmur Hospital Course & Plan: He states he has not been advised he had a murmur in the past. On PE he has a systolic murmur but echo shows mild to moderate aortic regurgitation. Departure Weight (Pounds): 173 Weight (Ounces): 7.0 Result Diagram: 12/16/1860312/16/18603 Condition: Improved Discharge: Home, Home Health PT/OT Follow Up For: PT For Strengthening, OT For ADL's, ST Evaluation and Treat Home Health RN Follow Up For: Medication Management, Nursing Assessment Home Health PERFORATOR TYPIST Follow Up For: ADL Assistance Discharge Code Status: Full Code Time Spent: < 30 min Discharge Instructions Home Meds Active Scripts Buspirone Hcl (BUSPIRONE HCL) 7.5 Mg Tablet, 7.5 MG PO BID, #180 TAB 1 Refill Prov:DENISSE LAU MD 11/23/18 Hydrocodone Bit/Acetaminophen (HYDROCODON-ACETAMINOPHEN 5-325) 1 Each Tablet, 1 EACH PO Q8H PRN for pain, #90 TAB Refill on or after 12/23/2018 Prov:DENISSE LAU MD 10/19/18 Fentanyl 75 Mcg Patch (FENTANYL 75 MCG PATCH) 1 Each Patch.td72, 1 PATCH TD Q72H, #10 PATCH.72H refill on or after 12/23/2018 Prov:DENISSE LAU MD 10/19/18 Gabapentin (GABAPENTIN) 300 Mg Capsule, 300 MG PO BID, #180 CAPSULE 1 Refill Prov:DENISSE LAU MD 10/19/18 Spironolactone (SPIRONOLACTONE) 50 Mg Tablet, 50 MG PO BID, #60 TAB 11 Refills Prov:DENISSE LAU MD 04/25/18 Amlodipine Besylate (AMLODIPINE BESYLATE) 10 Mg Tablet, 1 TAB PO QDAY, #30 TAB 11 Refills Prov:DENISSE LAU MD 08/24/17 Lisinopril (LISINOPRIL) 20 Mg Tablet, 20 MG PO BID, #60 TAB 11 Refills Prov:DENISSE LAU MD 08/24/17 Metoprolol Succinate (METOPROLOL SUCCINATE) 100 Mg Tab.er.24h, 1 TAB PO QDAY, #11 TAB 11 Refills Prov:DENISSE LAU MD 08/24/17 Duloxetine Hcl (CYMBALTA) 60 Mg Capsule.dr, 60 MG PO QDAY, #30 CAP 11 Refills Prov:DENISSE LAU MD 08/24/17 Reported Medications Lutein Extract/Zeaxanthin Ext (LUTEIN 15 MG SOFTGEL) 1 Each Capsule, 1 EACH PO DAILY, CAPSULE 01/20/18 Polyethylene Glycol 3350 (MIRALAX) 17 Gm Powd.pack, 17 GM PO QDAY PRN for CONSTIPATION 03/12/15 Diet: Regular Activity: As Tolerated Special Instructions: Back brace when up as needed for pain Follow up with your PCP, Dr. Lau, in one week. Copies to: DENISSE LAU MD ; Venous Thromboembolism Antithrombotics Is Pt On Any Antithrombotics?: Yes Dclq-in-[id number] Certification Face to Face Home Health Certification Patient's Primary Care Provider: Denisse Lau MD Institutional Provider conducted the tvml-[id number] encounter. Electronic Undersigning Physician Certifies Home Health. I certify that the patient has been under my care and that I had a [id number] encounter that meets the physician [id number] encounter requirements with this patient. This patient is home-bound due to safety issues and continues to require as sistance with ADL's. I certify that based on my findings, that Nursing, Aides and the following Home Health services are medically necessary: PT, OT and ST Medical Necessity: Nursing, Rehab Date Face to Face Conducted: Dec 20, 2018 CASTILLO NEVAREZ MD Dec 20, 2018 14:52
--- NOTE | 2018-12-20 15:03 | NUR ---
OCCUPATIONAL THERAPY Dressing Assistance: Independent UB/LB dressing. Occasional v/c's to don TLSO. Dressing Aid Required: None Bathing Assistance: CGA tub transfer with grab bars Bathing Equipment: Shower chair Home Assessment: Not Completed Feeding Assistance: Independent Feeding Specialized Equipment: None Toilet Use: Independent Verbalizes Needs: Yes Understands Precautions: Yes Cooperative: Yes Family Teaching: No Occupational Therapy Comment: TLSO donned when up. Recommend supervision for bathing and IADLs.
--- NOTE | 2018-12-20 15:12 | OT ECF NOTE ---
Type of Note: Discharge Note Primary Medical Diagnosis: Generalized weakness s/p L1 compression fracture. *TLSO donned when OOB* Occupational Therapy Evaluation Date: 12/11/18 SUBJECTIVE: Prior Hospitalization: COUNTS INCLUDE 234 BEDS AT THE [facility] 12/07/18-12/11/18 Prior Level of Function: Modified Independent for ADLs. Assist from son for IADLs and occasional LB dressing. Pt was ambulating household distances with a cane prior to admission. Pt reports he had not been out of bed since 11/16/18 due to back pain. Prior Living Status: Single level house Living with family-Son resides with patient and assists with all IADLs and occasional ADLs. Assist by family Community Services: No known needs Home Accessibility: Ramp All needs on one level Tub/shower combination Equipment Owned: Rollator Tub/shower chair Grab bars in bathroom Medical Complications/Past Medical History: Please refer to EMR Psychosocial Support: Supportive children (some locally and some out of town) Pain Scale (0-10): Pt reporting significant pain improvement. Occasional discomfort in lower back and abdomen with functional mobility. No numerical rating provided. OBJECTIVE: Strength: MMT: Right Left Shoulder Flexion WFL WFL Elbow Flexion WFL WFL Wrist Extension WFL WFL [employer] Studies Professor WFL WFL (5= normal, 4= good, 3= fair, 2= poor, 1= trace) ROM: Both upper extremities, WFL Sensation: No paraesthesia reported Functional Transfer: Assistive Device: 4WW Transfer Ability: SBA ADL: Upper body dressing: Assistive device: None Upper body dressing ability: Independent. Occasional assist to don TLSO. Independent doffing TLSO. Lower body dressing: Assistive device: None Lower body dressing ability: Independent Toileting: Assistive device: Grab bar-Pt reports similar set-up at home. Toileting ability: Independent Grooming/hygiene: Assistive device: None Grooming ability: Independent Bathing: Assistive device: Grab bars. Bathing ability: CGA tub transfer. Pt reports son assisted with tub transfers and bathing prior to admission and will continue to assist at discharge. Standardized Assessment: Shane Index of Activities of Daily Livin/20 upon initial evaluation (12/11/18). upon discharge evaluation (12/20/18). ASSESSMENT: Jamey presented to [facility] with generalized weakness and decreased balance s/p L1 compression fracture that has limited pt's functional mobility for 2-3 weeks. He has met all skilled OT goals. Pt reports assist from sons for bathing and all IADLs (cooking/medication/cleaning). Recommend 24/7 supervision upon discharge home with assist for all ADLs. Short Term Goals: 1) Pt will be SBA toilet task. GOAL MET 2) Pt will be Independent grooming/hygiene. GOAL MET 3) Pt will be SBA shower task seated. GOAL MET 4) Pt will be SBA UB/LB dressing. GOAL MET 5) Pt Shane Index of ADLs score will improve by 2 points. GOAL MET Carpet Layer Goals: Return home with HH services and continued assist from son for ADLs/IADLs Patient Goals: "Be home by " Get moving better. Rehabilitation Prognosis: Good Barriers to Discharge: Pain, Medical history PLAN: The patient will discharge home with HH care and assist from family for IADLs/ADLs. Thank you for this referral. If you have any questions, concerns, or comments about this report or plan, please contact me at . Monse Pollack MS, OTR/L Occupational Therapist MAHESH
--- NOTE | 2018-12-21 08:30 | PT ECF NOTE ---
Type of Note: Discharge Primary Medical Diagnosis: Generalized weakness s/p L1 compression fracture. *TLSO donned when OOB* Physical Therapy Evaluation Date: 12/11/18 SUBJECTIVE: Prior Hospitalization: [facility] 12/07/18-12/11/18 Prior Level of Function: Modified Independent for ADLs. Assist from son for IADLs and occasional LB dressing. Pt was ambulating household distances with a cane prior to admission. Pt reports he had not been out of bed since 11/16/18 due to back pain. Prior Living Status: Single level house Living with family-Son resides with patient and assists with all IADLs and occasional ADLs. Assist by family Community Services: No known needs Home Accessibility: Ramp, All needs on one level, Tub/shower combination Equipment Owned: Cane; Rollator, Tub/shower chair, Grab bars in bathroom Medical Complications/Past Medical History: Please refer to EMR Psychosocial Support: Supportive children (some locally and some out of town) Pain Scale (0-10): Pt reporting significant pain improvement. Occasional discomfort in lower back and abdomen with functional mobility. No numerical rating provided. OBJECTIVE: Strength: B) LE's WFL overall ROM: (please note any abnormalities) B) LE's WFL overall Sensation: (please note any abnormalities) No paresthesias noted Other Neuro findings: none Bed Mobility: Independent, with verbal cues to provide log roll Assistive device: Transfers: Independent sit to stand transfers Assistive Device: Four wheeled walker Gait: SBA x 640 ft. Assistive device: Four wheeled walker Stairs: CGAx 2 sets of 1 stair Assistive device: ASSESSMENT: Pt with significant improvements in mobility, ambulating over 600 ft. Pt met all short term goals. Pt pain has significantly reduced, allow for more functional tasks to be performed. Pt demonstrated safe transfers and ability to negotiate a stair. Pt with independence in donning TLSO brace. Pt safe to discharge home with home health and assistance from son. Problem List/Current Limitations: Pain with mobility Short Term Goals: Met 1. Pt to be Min/CGA for bed mobility and supine<>sit trnsfrs (met) 2. Pt to be Min/CGA for sit to/from stand transfers (met) 3. Pt to tolerate ambulation with least restrictive device and TLSO x 150' (met) 4. Pt to complete up/down small platform step to simulate threshold to home after ramp. (met) Medical Staff Services Coordinator Goals: Return home with appropriate level of assistance provided by family and [facility] services Patient Goals: Return home by "21 of December" Rehabilitation Prognosis: Good to goals set Barriers for Discharge: Difficulty with carry over of skills and don/doff of brace appropriately PLAN: Patient will discharge home with home health and assistance from son. Thank you for this referral. If you have any questions, concerns, or comments about this report or plan, please contact me at . Thomas Sanderson, SPT Chloe Jensen, PT, DPT MTDD
== END 2018-12-20 15:35 | disposition home health service (06) | DRG 560 ==
LOC: SWB 10:50 → UNDOADMIN 10:50
PROVIDERS: ADMIT Family Medicine; ATTEND Family Medicine
DX: S32.010D Wedge compression fracture of first lumbar vertebra, subsequent encounter for fracture with routine healing (principal); F33.2 Major depressive disorder, recurrent severe without psychotic features; G89.4 Chronic pain syndrome; I10 Essential (primary) hypertension; I35.1 Nonrheumatic aortic (valve) insufficiency; R01.1 Cardiac murmur, unspecified; Z23 Encounter for immunization
CPT/HCPCS: 36415; 36416; 74018; 82040; 82247; 82310; 82374; 82435; 82565; 82947; 82948; 84075; 84132; 84155; 84295; 84450; 84460; 84520; 85025; 90471; 90732; 92523; 97161; 97166; J1650; J7030